=== PATIENT | male | born 1935 | race Caucasian/White ===

== ENCOUNTER 2016-10-08 10:24 | Inpatient (IN) | payer OTHER ==
--- NOTE | 2016-10-08 10:47 | PDOC ---
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 Ortiz Rosa for evaluation of nausea and jaundice. He states he had an appointment with his Onc/Heme last week , for which he underwent chemotherapy, had outpatient labs drawn and a CT which showed improvement of his liver lesions. Patient states that since his outpatient appointment, he has been feeling nauseous for which he attributes to compliance of his narcotic pain medications. Patient also notes that his chronic leg swelling has worsen, as he notices that his legs are a but more swollen than usual. He denies fever, chills, chest pain, shortness of breath, lightheadedness. Allergies: No Known Drug Allergies. Past Surgical History: Cataract Removal. Cholecystectomy. Permanent Pacemaker. 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 Former smoker (quit approximately 52 years ago). No ETOH and recreational drug use. Primary Care Physician: Dr. Stephanie Brewster [phone] Oncologist/Fountain Worker: Dr. Ortiz Rosa [phone] <Kassie Caldwell - Last Filed: 10/08/16 13:41> - General Chief Complaint: Altered Mental Status Stated Complaint: NAUSEA, CONFUSION (PCP SENT) Past History - Past Medical History Anemia: Yes (Myelodysplastic anemia) Asthma: No Cancer: Yes (PANCREATIC/LIVER) Cardiac Disorders: Yes (arrythmia) CVA: No COPD: No CHF: No Dementia: No GI Disorders: Yes (RENAL STONES) Disorders: Yes (ENLARGED PROSTATE) HTN: No Hypercholesterolemia: No Liver Disease: No Suicide Attempt (Hx): Yes Seizures: No Thyroid Disease: Yes (HYPOTHYROID) - Surgical History Abdominal Surgery: Yes Appendectomy: No Cardiac Surgery: No Cholecystectomy: Yes Lung Surgery: No Neurologic Surgery: No Orthopedic Surgery: No - Immunization History Td Vaccination: Yes TDAP Vaccination: Yes - Psycho/Social/Smoking Cessation Hx Anxiety: No Suicidal Ideation: No Smoking Status: No Smoking History: Former smoker Have you smoked in the past 12 months: No Number of Cigarettes Smoked Daily: 0 If you are a former smoker, when did you quit?: 40 YRS Cigars Per Day: 0 Information on smoking cessation initiated: No 'Breaking Loose' booklet given: 05/15/13 Hx Alcohol Use: No Drug/Substance Use Hx: No Substance Use Type: None Hx Substance Use Treatment: No <Chirag Oliva - Last Filed: 10/08/16 12:45> <Kassie Caldwell - Last Filed: 10/08/16 13:41> - Past Medical History Allergies/Adverse Reactions: Allergies Allergy/AdvReac Type Severity Reaction Status Date / Time No Known Allergies Allergy Verified 10/08/16 10:32 Home Medications: Ambulatory Orders Norvasc - 2.5 mg PO DAILY 07/04/16 Oxycodone HCl 5 mg PO PRN 07/04/16 Synthroid - 50 mcg PO DAILY 07/04/16 Tamsulosin HCl [Flomax] 0.4 mg PO HS 07/04/16 Uloric - 80 mg PO DAILY 07/04/16 Zofran 8 mg PO PRN 07/04/16 Review of Systems - Review of Systems Constitutional: Yes: Weakness Cardiac (ROS): No: Chest Pain ABD/GI: Yes: See HPI, Nausea, Poor Appetite, Vomiting Musculoskeletal: Yes: Muscle Pain Neurological: Yes: See HPI All Other Systems: Reviewed and Negative <Chirag Oliva - Last Filed: 10/08/16 12:45> *Physical Exam - Vital Signs Last Vital Signs Temp Pulse Resp BP Pulse Ox 97.5 F L 51 L 20 83/58 98 10/08/16 10:26 10/08/16 10:26 10/08/16 10:26 10/08/16 10:26 10/08/16 10:26 <Chirag Oliva - Last Filed: 10/08/16 12:45> - Vital Signs Last Vital Signs Temp Pulse Resp BP Pulse Ox 97.5 F L 51 L 20 83/58 98 10/08/16 10:26 10/08/16 10:26 10/08/16 10:26 10/08/16 10:26 10/08/16 10:26 - Physical Exam Comments: 10/08/16 10:57 GENERAL: The patient is awake, alert, and fully oriented. +Jaundiced. HEAD: Normal with no signs of trauma. EYES: Pupils equal, round and reactive to light, extraocular movements intact, sclera anicteric, conjunctiva clear with no pallor. ENT: Ears normal, nares patent, oropharynx clear without exudates. Moist mucous membranes. NECK: Normal range of motion, supple without lymphadenopathy, JVD, or masses. LUNGS:+Decreased breath sounds at the bases. No wheeze/crackles. HEART: Regular rate and rhythm, normal S1 and S2 without murmur or rub. ABDOMEN: Soft/nontender/nondistended. BS wnl. No guarding or rebound. + Enlarged liver. EXTREMITIES: Normal range of motion. +There is 1-2+pitting edema yto the lower extremities, bilaterally. No clubbing or cyanosis. No cords, erythema, or tenderness. NEUROLOGICAL: Cranial nerves II through XII grossly intact. Normal speech. PSYCH: Normal mood, normal affect. SKIN: +Jaundiced. <Kassie Caldwell - Last Filed: 10/08/16 13:41> Heart Score/ECG Review #1 ECG reviewed & interpreted by me at: 11:10 Compared to previous ECG there are: No significant change (06/17/16) 10/08/16 11:47 Overall regular bradycardic rhythm with aberrancy, occasional PVC, ventricularly paced beat noted. No secondary signs of acute ischemic change. <Chirag Oliva - Last Filed: 10/08/16 12:45> ED Treatment Course - LABORATORY CBC & Chemistry Diagram: 10/08/16 11:00 10/08/16 11:00 - RADIOLOGY Radiology Studies Ordered: Category Date Time Status CHEST X-RAY PORTABLE* [RAD] Stat Radiology 10/08/16 10:45 Ordered <Chirag Oliva - Last Filed: 10/08/16 12:45> - LABORATORY CBC & Chemistry Diagram: 10/08/16 11:00 10/08/16 11:00 - RADIOLOGY Radiograph Interpretation: 10/08/16 13:39 EXAM: CT/HEAD CT WITHOUT CONTRAST IMPRESSION: Comparison studies: June 14, 2013 Clinical history: Altered mental status 5 mm thin axial sections completed with coronal and sagittal reformations, intravenous contrast was not administered. Age-appropriate changes in the cerebral cortical sulci consistent with moderate atrophy and ventricular distention. Stable appearance of mild chronic microvascular ischemic changes in the periventricular white matter No evidence of increased intracranial pressure with no sulcal effacement identified No subdural or subarachnoid hemorrhage No intraventricular hemorrhage No hyperdense vessel Midline fourth ventricle with no signs of downward herniation and normal visualization of the brainstem and posterior fossa No acute areas of infarction noted in the posterior fossa or in the supratentorial brain No CT evidence of mass. Review of the bone windows with normal aeration sinuses and mastoids with no calvarial lesion identified. Normal region of orbits. EXAM: RAD/CHEST X-RAY PORTABLE IMPRESSION: Chest. Single AP portable x-ray. Comparison study June 17, 2016. Left pacemaker with 2 intact leads. Cardiomegaly. Uncoiled thoracic aorta. Patient slightly rotated toward the left side. The lungs are well aerated. No evidence of pulmonary infiltrates, vascular congestion, pleural effusion, or pneumothorax. Intact visualized osseous structures. <Kassie Caldwell - Last Filed: 10/08/16 13:41> Medical Decision Making - Medical Decision Making 10/08/16 11:47 A portion of this note was documented by scribe services under my direction. I have reviewed the details of the note, within reason, and agree with the documentation with the following case summary and management plan written by me. 81-year-old male with history of metastatic pancreatic CA on weekly chemotherapy with recent outpatient evidence of failure to respond to chemotherapy, rising bilirubins as of last week, and today presented to admitting for unclear reasons, was diverted to the ED for further evaluation. Has no acute complaints other than his usual abdominal pain with nausea/vomiting , worsening bodyaches taking oral morphine at home. Vitals as noted. Jaundice. Remainder of exam as noted 81-year-old male with metastatic pancreatic CA and known liver lesions, failing to respond to outpatient chemotherapy with rising bilirubins of late and evidence of liver failure. Concern for hepatic encephalopathy, exam otherwise is noted. No fever. Labs including ammonia and lactate Chest x-ray, EKG Discussed with Dr. Rosa, provided most of the history above. Will likely require admission 10/08/16 12:37 Pancytopenia has actually improved, but markedly worsening in his liver function tests, giving compared to the provided total bilirubin level of 7 last week. Total bili now 23.6, elevated transaminases, acute renal insufficiency with creatinine of 3.6 and potassium 5.9. Insulin/D50/Kayexalate for IDRIS with hyperkalemia. Ammonia and Lactate normal. Likely becoming encephalopathic from liver failure. Will check ct head to r/o bleed given h/o pancytopenia/hepatic failure (INR hemolyzed). Proceed with admission. 10/08/16 12:45 Accepted for inpatient med/surg by Dr. Marina, admitting Dr. Brewster's patients. Requested consult from GI (seen by Bill/Karime in past), Dr. Charles organizational effectiveness consultant. Requested consult from Dr. Helton of renal. <Chirag Oliva - Last Filed: 10/08/16 12:45> - Medical Decision Making 10/08/16 11:08 A call was placed to patient's Oncologist/Fountain Worker, Dr. Ortiz Rosa at . Informed by contract post office clerk that the Dr. Ortiz Rosa is in a meeting and will return our call back as soon as he is done. 10/08/16 11:52 Discussed case with Oncologist/Fountain Worker, Dr. Ortiz Rosa. Informed that his outpatient biliruben was 7.8. Patient presenting to Admitting for unclear reasons. Admitting contacted Dr. Rosa, for which he is unclear why the patient is in the hospital, thus he is concern of patient's confusion. As per Dr. Rosa , the patient has stopped responding to chemotherapy. 10/08/16 12:39 A call was placed to Dr. Yazmin Marina, who covers for patient's PMD, Dr. Stephanie Brewster at [phone]. Case was discussed. Accepts case. Patient will be admitted for further management. <Kassie Caldwell - Last Filed: 10/08/16 13:41> *DC/Admit/Observation/Transfer - Discharge Dispostion Admit: Yes <Chirag Oliva - Last Filed: 10/08/16 12:45> - Attestations Scribe Attestion: 10/08/16 10:57 Documentation prepared by Kassie Caldwell, acting as medical superintendent for Chirag Oliva MD. <Kassie Caldwell - Last Filed: 10/08/16 13:41> Diagnosis at time of Disposition: Liver metastases, Jaundice, Hepatic encephalopathy Altered mental status Qualifiers: Altered mental status type: disorientation Qualified Code(s): R41.0 - Disorientation, unspecified
[2016-10-08 11:34] LABS: MCHC 35.9 g/dl (32.0-35.9); MEAN CELL VOLUME 116.7 fl (80-96); MEAN PLT VOLUME 11.8 fl (7.5-11.1); PLATELET COUNT 124 K/MM3 (134-434); RDW 16.3 % (11.9-15.9); WHITE BLOOD COUNT 4.9 K/mm3 (4.0-10.0)
[2016-10-08 11:37] LABS: MCH 41.9 pg (25.7-33.7)
[2016-10-08 11:48] LABS: ALBUMIN 3.7 g/dl (3.4-5.0); ANION GAP 16 (8-16); CALCIUM 9.4 mg/dL (8.5-10.1); CO2 16 mmol/L (21-32); CREATININE 3.6 mg/dL (0.7-1.3); GLUCOSE,RANDOM 140 mg/dL (74-106)
[2016-10-08 11:57] LABS: ALK PHOS 447 U/L (45-117); BILIRUBIN,TOTAL 23.6 mg/dL (0.2-1.0); TROPONIN I < 0.02 ng/ml (0.00-0.05)
[2016-10-08 12:05] LABS: SGOT/AST 106 U/L (15-37)
[2016-10-08 12:06] LABS: SGPT/ALT 104 U/L (12-78)
[2016-10-08] MEDS ORDERED: SODIUM POLYSTYRENE SULFONATE 15 GM/60 ML BOTTLE PO ONE (12:36)
[2016-10-08] MEDS ORDERED: SODIUM CHLORIDE 1,000 ML IV ONE (12:36)
[2016-10-08] MEDS ORDERED: INSULIN REGULAR HUMAN 100 UNITS/ML *VIAL IVPUSH ONE (12:36)
[2016-10-08] MEDS ORDERED: DEXTROSE 50%-WATER 50 ML VIAL IVPUSH ONE (12:36)
[2016-10-08] MEDS ORDERED: DEXTROSE 50%-WATER 50 ML DISP.SYRIN ONE (12:40)
[2016-10-08] MEDS ORDERED: SODIUM POLYSTYRENE SULFONATE 15 GM/60 ML BOTTLE ONE (12:40)
[2016-10-08] MEDS ORDERED: INSULIN REGULAR HUMAN 100 UNITS/ML *VIAL ONE (12:41)
[2016-10-08] MEDS ORDERED: ONDANSETRON 4 MG/2 ML VIAL ONE (12:43)
[2016-10-08 15:50] VITALS: BMI 27.1
--- NOTE | 2016-10-08 16:04 | PN ---
Progress Note (short form) - Note Progress Note: Consult dictated: 81M with metastatic pancreatic cancer. Has been getting chemo for about 4-5 months Admitted for generalized weakness, jaundice On exam: Scleral icterus Bradycardic heart rate No abdominal tenderness B/L LE edema Imp/plan: Painless jaundice. Given clinical picture, suspect secondary to progression of cancer, cancer burden in liver and possibly biliary duct involvement. There is no imaging to assess for ductal dilatation. Regardless, he has received several months of chemotherapy. At this point, the goal should be for palliative measures. I explained the situation to Mr. Carrasco. He would like to speak to his oncologist. Abdominal US to assess for dilated bile ducts
--- NOTE | 2016-10-08 21:17 | CONS ---
DATE OF CONSULTATION: 10/08/2016 REQUESTING PHYSICIAN: Yazmin Marina MD The patient is an 81-year-old male admitted through [facility] emergency room for evaluation of generalized malaise and weakness. He has a history of metastatic pancreatic cancer and was diagnosed in April of 2016. He had a colonoscopy at that time to exclude a colon source. He has been getting chemotherapy for approximately 4 to 5 months. He last had a CT scan of the abdomen and pelvis without contrast September 17, 2016, that revealed hepatic masses slightly decreased in size, some have remained stable, without any significant increase in size of the lesions. The spleen appeared unremarkable. There is a previously described prominent pancreatic tail with heterogeneous attenuation in separable from medial aspect of the spleen. Pancreatic head and body were unremarkable. I have been asked to evaluate further. Past medical history includes coronary artery disease, CHF, hyperlipidemia, bradycardia, he has tachy-jaydon syndrome status post permanent pacemaker, pulmonary history is COPD, pneumonia, constipation, cholelithiasis status post laparoscopic cholecystectomy, renal calculi status post stenting with ESWL, myeloproliferative disorder, history of Alzheimer disease, hypothyroidism, onychomycosis of the nails, optic preseptal cellulitis, cataract removal. Past surgical history includes cataract removal, laparoscopic cholecystectomy. SOCIAL HISTORY: Rare alcohol use. Former smoker. No history of intravenous drug abuse, illicit drugs. 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 PHYSICAL EXAMINATION: General: Patient was found lying in his bed. Vital Signs: He is afebrile, pulse of 50, blood pressure 90/49. Sclerae: Icteric. Neck: Supple. Heart: A bradycardic rate with a systolic murmur. Abdomen: Nondistended. He had healed trocar scars. No hepatosplenomegaly is appreciated. There is some fullness in the right upper quadrant. There is no guarding or rebound. Extremities: Bilateral lower extremity edema which is pitting. LABORATORY EVALUATION: White blood count 4.9, hemoglobin 11, hematocrit 30.7, platelets of 124. Sodium 135, potassium 5.9, chloride 103, bicarbonate 16, BUN 80, creatinine 3.6, glucose 140, AST of 106, ALT of 104, alkaline phosphatase of 447, total bilirubin 23.6, ammonia level less than 10. RADIOLOGY REPORTS: CT scan of the brain revealed no evidence of mass, hemorrhage, or acute vascular infarction. IMPRESSION: An 81-year-old male with painless jaundice. Given clinical picture, I suspect that this is secondary to progression of his cancer, likely cancer burden with an increasing cancer burden in his liver, possibly biliary duct involvement as well. There is no imaging to assess for ductal dilatation. Regardless, he has received several months of chemotherapy. At this point the goal should be for palliative measures. I explained the situation to the patient. He would like to speak to his oncologist, consider palliative care evaluation. I did place a consult for palliative care, abdominal ultrasound to assess for dilated bile ducts. Other recommendations pending the above. I thank you for this consultative opportunity. MIKIE MADSEN DO [id number]
--- NOTE | 2016-10-08 23:43 | HP ---
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 Ortiz Rosa for evaluation of nausea and jaundice. He states he had an appointment with his Onc/Heme last week , for which he underwent chemotherapy, had outpatient labs drawn and a CT which showed improvement of his liver lesions. Patient states that since his outpatient appointment, he has been feeling nauseous for which he attributes to compliance of his narcotic pain medications. Patient also notes that his chronic leg swelling has worsen, as he notices that his legs are a but more swollen than usual. He denies fever, chills, chest pain, shortness of breath, lightheadedness. 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: Other (myeloproliferative disorder ca of pancreas with liver metastases, onychomycoses of finger nails on the left hand.) Cardiovascular: Yes: AFIB, CAD, CHF, HTN, Hyperlipdemia, Other (tachy jaydon syndrome) Pulmonary: Yes: Other (has some copd and had pneumonia at his last hospitalization in another hospital.) Gastrointestinal: Yes: Constipation Hepatobiliary: Yes: Cholelithiasis (had lap choly), Other Renal/: Yes: BPH, Renal Calculi (s/p stenting and ERSWL at [facility]) Heme/Onc: Yes: Anemia, Myeloproliferative Synd (transfused at [facility]) Psych: Yes: Other (early alzheimers disease.) Rheumatology: Yes: Gout Endocrine: Yes: Hypothyroidism Dermatology: Yes: Other (onychomycis of the nails of the left hand.) - Past Surgical History Past Surgical History: Yes: Cataract Removal, Cholecystectomy, Permanent Pacemaker - Smoking History Smoking history: Former smoker Have you smoked in the past 12 months: No Aproximately how many cigarettes per day: 0 If you are a former smoker, when did you quit?: 40 YRS - Alcohol/Substance Use Hx Alcohol Use: No - Social History ADL: Support Services 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, 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, [employer]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 History of Recent Travel: No Home Medications - Allergies Allergies/Adverse Reactions: Allergies Allergy/AdvReac Type Severity Reaction Status Date / Time No Known Allergies Allergy Verified 10/08/16 10:32 - Home Medications Home Medications: Ambulatory Orders Norvasc - 2.5 mg PO DAILY 07/04/16 Oxycodone HCl 5 mg PO PRN 07/04/16 Synthroid - 50 mcg PO DAILY 07/04/16 Tamsulosin HCl [Flomax] 0.4 mg PO HS 07/04/16 Uloric - 80 mg PO DAILY 07/04/16 Zofran 8 mg PO PRN 07/04/16 Family Disease History - Family Disease History Family Disease History: Heart Disease: Mother ( of PA in her 70's), CA: Father (lung cancer), Other: Son (obesity) Review of Systems - Review of Systems Constitutional: reports: Loss of Appetite Eyes: reports: No Symptoms HENT: reports: No Symptoms Neck: reports: No Symptoms Cardiovascular: reports: No Symptoms Respiratory: reports: Exercise Intolerance Gastrointestinal: reports: Other (jaundice) Genitourinary: reports: No Symptoms Breasts: reports: No Symptoms Reported Musculoskeletal: reports: No Symptoms Integumentary: reports: No Symptoms Neurological: reports: No Symptoms Psychiatric: reports: No Symptoms Physical Examination Vital Signs: Vital Signs Temperature 97.5 F L 10/08/16 21:41 Pulse Rate 60 10/08/16 21:41 Respiratory Rate 18 10/08/16 21:41 Blood Pressure 107/50 10/08/16 21:41 O2 Sat by Pulse Oximetry (%) 98 10/08/16 21:00 Constitutional: Yes: Well Nourished, Calm Eyes: Yes: Other (jaundice) HENT: Yes: Atraumatic, Normocephalic Neck: Yes: Supple Cardiovascular: Yes: Regular Rate and Rhythm, Bradycardia Respiratory: Yes: Regular, CTA Bilaterally Gastrointestinal: Yes: Normal Bowel Sounds Renal/: Yes: WNL Breast(s): Yes: WNL Edema: LLE: 2+, RLE: 2+ Peripheral Pulses: Left Radial: 1+ Integumentary: Yes: WNL Neurological: Yes: Alert, Oriented Psychiatric: Yes: Alert, Oriented Problem List - Problems (1) Jaundice Code(s): R17 - UNSPECIFIED JAUNDICE (2) Abdominal bloating Code(s): R14.0 - ABDOMINAL DISTENSION (GASEOUS) (3) Anemia Code(s): D64.9 - ANEMIA, UNSPECIFIED Qualifiers: 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 (4) Chronic kidney disease (CKD) Code(s): N18.9 - CHRONIC KIDNEY DISEASE, UNSPECIFIED Qualifiers: Chronic kidney disease stage: stage 3 (moderate) Qualified Code(s): N18.3 - Chronic kidney disease, stage 3 (moderate) (5) Chronic myeloproliferative disorder Code(s): D47.1 - CHRONIC MYELOPROLIFERATIVE DISEASE (6) HTN (hypertension) Code(s): I10 - ESSENTIAL (PRIMARY) HYPERTENSION Qualifiers: Hypertension type: essential hypertension Qualified Code(s): I10 - Essential (primary) hypertension (7) Hypothyroidism Code(s): E03.9 - HYPOTHYROIDISM, UNSPECIFIED Qualifiers: Hypothyroidism type: unspecified Qualified Code(s): E03.9 - Hypothyroidism, unspecified (8) Liver masses Code(s): R16.0 - HEPATOMEGALY, NOT ELSEWHERE CLASSIFIED (9) Liver metastases Code(s): C78.7 - SECONDARY MALIG NEOPLASM OF LIVER AND INTRAHEPATIC BILE DUCT (10) Presence of permanent cardiac pacemaker Code(s): Z95.0 - PRESENCE OF CARDIAC PACEMAKER
--- NOTE | 2016-10-08 23:48 | EKG ---
Test Reason : Blood Pressure : / mmHG Vent. Rate : 055 BPM Atrial Rate : 055 BPM P-R Int : 000 ms QRS Dur : 154 ms QT Int : 462 ms P-R-T Axes : 000 -76 149 degrees QTc Int : 441 ms SINUS BRADYCARDIA WITH SINUS ARRHYTHMIA WITH 1ST DEGREE A-V BLOCK WITH OCCASIONAL ventricular-paced complexes LEFT AXIS DEVIATION NON-SPECIFIC INTRA-VENTRICULAR CONDUCTION BLOCK ABNORMAL ECG WHEN COMPARED WITH ECG OF 17-JUN-2016 15:26, ELECTRONIC VENTRICULAR PACEMAKER HAS REPLACED SINUS RHYTHM Confirmed by HUMBLE NY MD ([id number]) on 10/08/2016 11:48:38 PM Referred By: Confirmed By:HUMBLE [place] MD
[2016-10-09] MEDS: LEVOTHYROXINE NA 50 MCG TABLET (FP) PO SCH (06:08)
[2016-10-09 07:13] LABS: INR 1.58 (0.82-1.09); PROTHROMBIN TIME (PATIENT) 17.5 SEC (9.98-11.88)
[2016-10-09 07:16] LABS: ACTIVATED PTT 31.2 SECONDS (26.9-34.4)
[2016-10-09 07:45] LABS: BASOPHIL 0.6 % (0-2.0); MCH 39.2 pg (25.7-33.7); MCHC 32.8 g/dl (32.0-35.9); MEAN CELL VOLUME 119.5 fl (80-96); MEAN PLT VOLUME 10.7 fl (7.5-11.1); NEUTROPHILS 66.3 % (42.8-82.8); PLATELET COUNT 65 K/MM3 (134-434); RDW 16.7 % (11.9-15.9); WHITE BLOOD COUNT 5.9 K/mm3 (4.0-10.0)
[2016-10-09 08:31] LABS: ALBUMIN 3.1 g/dl (3.4-5.0); BILIRUBIN,TOTAL 20.8 mg/dL (0.2-1.0); CALCIUM 8.7 mg/dL (8.5-10.1); MAGNESIUM 2.4 mg/dL (1.8-2.4)
[2016-10-09] MEDS ORDERED: HYDROmorphone HCL CARPU-JECT 1 MG/1 ML DISP.SYRIN IVPB ONE (16:18)
[2016-10-09] MEDS ORDERED: SODIUM CHLORIDE 500 ML IV STA (16:18)
--- NOTE | 2016-10-09 16:22 | PN ---
Progress Note (short form) - Note Progress Note: Renal Consult for RADHA on CKD This is a 81 year old Gentleman with PMhx of Metastatic Pancreatic Ca, Myeloproliferative disorder, Hypertension, CAD, COPD, BPH, Gout who presented with Nausea and vomiting and found to have RADHA with BUN/Cr of 80/3.6. Baseline CR 1.7. Pt s/p recent chemo with Gemzar last week. Denies any NSAID use No recent contrast exposure. Reports decreased urine output with dark urine. No flank pain but does have abd pain. No sob, chest pain. No fever or chills. PMhx: as above Allergies: NKDA Family hx: NC Social Hx: No T/A/D ROS: as per HPI, all other pertinent ros negative Home Meds: Medication Instructions Recorded Norvasc - 2.5 mg PO DAILY 07/04/16 Oxycodone HCl 5 mg PO PRN 07/04/16 Synthroid - 50 mcg PO DAILY 07/04/16 Tamsulosin HCl [Flomax] 0.4 mg PO HS 07/04/16 Uloric - 80 mg PO DAILY 07/04/16 Zofran 8 mg PO PRN 07/04/16 Vital Signs Temperature 97.5 F L 10/09/16 08:35 Pulse Rate 64 10/09/16 08:35 Respiratory Rate 20 10/09/16 08:35 Blood Pressure 107/67 10/09/16 08:35 O2 Sat by Pulse Oximetry (%) 98 10/09/16 08:35 Intake & Output 10/06/16 10/07/16 10/08/16 10/09/16 23:59 23:59 23:59 23:59 Intake Total 400 Output Total 200 Balance 200 Weight 195 lb Gen: Mild distress from abd pain HEENT: Dry MM, NO JVD, Neck Supple CVS: RRR, No M/R Lungs: CTA, no rales or wheeze Abd: + tenderness RLQ Ext: 1+ edema in LE, no cyanosis or clubbing. : No overt bladder distension CBC, BMP 10/09/16 05:35 10/09/16 05:35 Current Medications Diphenhydramine HCl (Benadryl -) 50 mg PO Q4H PRN PRN Reason: ITCHING Sodium Chloride (Normal Saline -) 500 mls @ 500 mls/hr IV ASDIR STA Stop: 10/09/16 17:17 Sodium Chloride (Normal Saline -) 1,000 mls @ 83 mls/hr IV ASDIR STANLEY Levothyroxine Sodium (Synthroid -) 50 mcg PO DAILY@0700 [facility] Last Admin: 10/09/16 06:08 Dose: 50 mcg A/P 81 year old Gentleman with PMhx of Metastatic Pancreatic Ca, Myeloproliferative disorder, Hypertension, CAD, COPD, BPH, Gout who presented with Nausea and vomiting and found to have RADHA with BUN/Cr of 80/3.6. Baseline CR 1.7 #Acute Kidney Injury Differntial includes : Obstruction from tumor burden, Volume depletion from N/V , TTP-HUS from Gemzar Check UA, UPCR, FeNa Check LDH, Haptoglobin, Noble Renal and bladder US to r/o obstruction Start IVF: NS Bolous and then maintaince if no significant urine output -> insert chinchilla to monitor I and O No acute indication for SPINNERET PERSON at this time Dose all meds for Cr Cl less then 15 #Metabolic acidosis + Anion gap Start sodium bicarb 650mg BID Check urine anion gap #Metastatic Pancreatic CA Oncology follow up Pain control #Anemia/Thrombocytopenia Chemo related vs. TTP-HUS Check LDH, haptoglobin, noble Oncology follow up Thank you Will follow Bryan Love DO
[2016-10-09] MEDS: diphenhydrAMINE HCL 25 MG CAPSULE (FP) PO PRN (16:49)
[2016-10-09] MEDS: SODIUM CHLORIDE 1,000 ML IV SCH (16:54)
[2016-10-09] MEDS ORDERED: oxyCODONE HCL 5 MG TABLET PO PRN ×2 (17:21→23:07)
--- NOTE | 2016-10-09 19:45 | PN ---
Progress Note (short form) - Note Progress Note: The patient is an 81-year-old man with a significant past medical history of MDS and of pancreatic carcinoma with liver metastasis (on chemotherapy for the past 3 months, last chemotherapy was last week/ Gemzar and Abraxane),, hypertension, hypercholesterolemia, coronary artery disease, atrial fibrillation , chronic obstructive pulmonary disease, benign prostatic hyperplasia, gout arthritis, hypothyroidism and Alzheimer's disease came in for evaluation of nausea and jaundice. Also with worsening lower extremity edema. 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.) Cardiovascular: Yes: AFIB, CAD, CHF, HTN, Hyperlipdemia, Other (tachy jaydon syndrome) Pulmonary: Yes: Other (has some copd and had pneumonia at his last hospitalization in another hospital.) Gastrointestinal: Yes: Constipation Hepatobiliary: Yes: Cholelithiasis (had lap choly), Other Renal/: Yes: BPH, Renal Calculi (s/p stenting and ERSWL at [facility]) Heme/Onc: Yes: Anemia, Myeloproliferative Synd (transfused at [facility]) Psych: Yes: Other (early alzheimers disease.) Rheumatology: Yes: Gout Endocrine: Yes: Hypothyroidism Dermatology: Yes: Other (onychomycis of the nails of the left hand.) - Past Surgical History Past Surgical History: Yes: Cataract Removal, Cholecystectomy, Permanent Pacemaker - Smoking History Smoking history: Former smoker - Social History ADL: Support Services 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, 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, [employer]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 Home Medications - Allergies Allergies/Adverse Reactions: Allergies Allergy/AdvReac Type Severity Reaction Status Date / Time No Known Allergies Allergy Verified 10/08/16 10:32 - Home Medications Home Medications: Ambulatory Orders Norvasc - 2.5 mg PO DAILY 07/04/16 Oxycodone HCl 5 mg PO PRN 07/04/16 Synthroid - 50 mcg PO DAILY 07/04/16 Tamsulosin HCl [Flomax] 0.4 mg PO HS 07/04/16 Uloric - 80 mg PO DAILY 07/04/16 Zofran 8 mg PO PRN 07/04/16 Current Medications Diphenhydramine HCl (Benadryl -) 50 mg PO Q4H PRN PRN Reason: ITCHING Last Admin: 10/10/16 10:24 Dose: 50 mg Febuxostat (Uloric -) 80 mg PO DAILY [facility] Last Admin: 10/10/16 10:25 Dose: 80 mg Hydromorphone HCl (Dilaudid Injection -) 1 mg IVPB Q4H PRN PRN Reason: PAIN Last Admin: 10/10/16 00:57 Dose: 1 mg Sodium Chloride (Normal Saline -) 1,000 mls @ 83 mls/hr IV ASDIR [facility] Last Admin: 10/10/16 10:22 Dose: 83 mls/hr Levothyroxine Sodium (Synthroid -) 50 mcg PO DAILY@0700 [facility] Last Admin: 10/10/16 06:13 Dose: 50 mcg Oxycodone HCl (Roxicodone -) 5 mg PO Q4H PRN PRN Reason: PAIN Tamsulosin HCl (Flomax -) 0.4 mg PO DAILY@0830 [facility] Last Admin: 10/10/16 10:24 Dose: 0.4 mg Family Disease History - Family Disease History Family Disease History: Heart Disease: Mother ( of CA in her 70's), CA: Father (lung cancer), Other: Son (obesity) Physical Examination Vital Signs: AFVSS Constitutional: Yes: Well Nourished, Calm Eyes: Yes: Other (jaundice) HENT: Yes: Atraumatic, Normocephalic Neck: Yes: Supple Cardiovascular: Yes: Regular Rate and Rhythm, Bradycardia Respiratory: Yes: Regular, CTA Bilaterally Gastrointestinal: Yes: Normal Bowel Sounds ext.--2+ edema b/l A/P 81 y/o patient with HTN, hypothyroidism, , s/p pacemaker , MDS, metastatic pancreatic cancer on gemzar/abraxane now comes in with progressive disease, worsening jaundice. s/p gemzar/abraxane with good palliative, clinical benefit, now progressing agree with palliative/hospice care
[2016-10-09] MEDS ORDERED: HYDROmorphone HCL CARPU-JECT 1 MG/1 ML DISP.SYRIN IVPB PRN (23:03)
--- NOTE | 2016-10-09 23:37 | PN ---
Progress Note (short form) - Note Progress Note: jaundice / awake / alert /c/o pain / c/o itching "cannot find a comfortable position" pain in back / pain to abdomen / 'feeling bloated Vital Signs Period Temp Pulse Resp BP Sys/Beverly Pulse Ox Last 24 Hr 97.4 F-97.8 F 51-65 18-20 105-120/52-67 97-98 uncomfortable in bed / just recieved IV dilaudid neck no JVD heart S1S2 lungs clear bilat abd + distended mildly ext + edema Laboratory Last Values WBC 5.9 K/mm3 (4.0-10.0) 10/09/16 05:35 RBC 2.56 M/mm3 (4.00-5.60) L 10/09/16 05:35 Hgb 10.1 GM/dL (11.7-16.9) L 10/09/16 05:35 Hct 30.6 % (35.4-49) L 10/09/16 05:35 MCV 119.5 fl (80-96) H 10/09/16 05:35 MCHC 32.8 g/dl (32.0-35.9) 10/09/16 05:35 RDW 16.7 % (11.9-15.9) H 10/09/16 05:35 Plt Count 65 K/MM3 (134-434) L D 10/09/16 05:35 MPV 10.7 fl (7.5-11.1) 10/09/16 05:35 Neutrophils % 66.3 % (42.8-82.8) 10/09/16 05:35 Lymphocytes % 20.7 % (8-40) D 10/09/16 05:35 Monocytes % 9.4 % (3.8-10.2) D 10/09/16 05:35 Eosinophils % 3.0 % (0-4.5) 10/09/16 05:35 Basophils % 0.6 % (0-2.0) 10/09/16 05:35 Band Neutrophils 2.0 % (0-10) D 10/08/16 11:00 Macrocytosis 3+ 10/08/16 11:00 INR 1.58 (0.82-1.09) H D 10/09/16 05:35 PTT (Actin FS) 31.2 SECONDS (26.9-34.4) D 10/09/16 05:35 Sodium 138 mmol/L (136-145) 10/09/16 05:35 Potassium 4.3 mmol/L (3.5-5.1) D 10/09/16 05:35 Chloride 106 mmol/L (98-107) 10/09/16 05:35 Carbon Dioxide 17 mmol/L (21-32) L 10/09/16 05:35 Anion Gap 15 (8-16) 10/09/16 05:35 BUN 93 mg/dL (7-18) H 10/09/16 05:35 Creatinine 4.0 mg/dL (0.7-1.3) H 10/09/16 05:35 Creat Clearance w eGFR 14.41 (>60) 10/09/16 05:35 Random Glucose 116 mg/dL (74-106) H 10/09/16 05:35 Lactic Acid 1.564 mmol/L (0.4-2.0) 10/08/16 11:00 Calcium 8.7 mg/dL (8.5-10.1) 10/09/16 05:35 Magnesium 2.4 mg/dL (1.8-2.4) 10/09/16 05:35 Total Bilirubin 20.8 mg/dL (0.2-1.0) H* 10/09/16 05:35 Direct Bilirubin 14.1 mg/dL (0.0-0.2) H* 10/08/16 11:00 AST 73 U/L (15-37) H D 10/09/16 05:35 ALT 88 U/L (12-78) H 10/09/16 05:35 Alkaline Phosphatase 425 U/L (45-117) H 10/09/16 05:35 Ammonia < 10.00 umol/L (11-32) L 10/08/16 11:15 LD Total 175 U/L (87-241) 10/09/16 17:20 Creatine Kinase 122 IU/L (39-308) 10/08/16 11:00 Troponin I < 0.02 ng/ml (0.00-0.05) D 10/08/16 11:00 Total Protein 7.0 g/dl (6.4-8.2) 10/09/16 05:35 Albumin 3.1 g/dl (3.4-5.0) L 10/09/16 05:35 Blood Type AB POSITIVE 10/08/16 10:45 Antibody Screen Negative 10/08/16 10:45 Direct Antiglob Test Negative (NEGATIVE) 10/09/16 17:20 Microbiology 10/08/16 11:00 Blood - Peripheral Venous Blood Culture - Preliminary NO GROWTH OBTAINED AFTER 24 HOURS, INCUBATION TO CONTINUE FOR 4 DAYS. 10/08/16 11:00 Blood - Peripheral Venous Blood Culture - Preliminary NO GROWTH OBTAINED AFTER 24 HOURS, INCUBATION TO CONTINUE FOR 4 DAYS. 81-year-old male with metastatic pancreatic CA and known liver lesions, failing to respond to outpatient chemotherapy with rising bilirubins of late and evidence of liver failure. Concern for hepatic failure /acute kidney failure / failure of treatment Awaiting Heme -onc follow up; as patient wants to discuss "management "- palliative care has been requested and have spoken to the patient. He states he knows he has "little time" ........ plan for comfort care / pain management Problem List - Problems (1) Pancreatic adenocarcinoma Code(s): C25.9 - MALIGNANT NEOPLASM OF PANCREAS, UNSPECIFIED (2) Liver metastases Code(s): C78.7 - SECONDARY MALIG NEOPLASM OF LIVER AND INTRAHEPATIC BILE DUCT (3) Jaundice Code(s): R17 - UNSPECIFIED JAUNDICE (4) Abdominal bloating Code(s): R14.0 - ABDOMINAL DISTENSION (GASEOUS) (5) Anemia Code(s): D64.9 - ANEMIA, UNSPECIFIED Qualifiers: 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 (6) Chronic kidney disease (CKD) Code(s): N18.9 - CHRONIC KIDNEY DISEASE, UNSPECIFIED Qualifiers: Chronic kidney disease stage: stage 3 (moderate) Qualified Code(s): N18.3 - Chronic kidney disease, stage 3 (moderate) (7) Chronic myeloproliferative disorder Code(s): D47.1 - CHRONIC MYELOPROLIFERATIVE DISEASE (8) HTN (hypertension) Code(s): I10 - ESSENTIAL (PRIMARY) HYPERTENSION Qualifiers: Hypertension type: essential hypertension Qualified Code(s): I10 - Essential (primary) hypertension (9) Hypothyroidism Code(s): E03.9 - HYPOTHYROIDISM, UNSPECIFIED Qualifiers: Hypothyroidism type: unspecified Qualified Code(s): E03.9 - Hypothyroidism, unspecified (10) Liver masses Code(s): R16.0 - HEPATOMEGALY, NOT ELSEWHERE CLASSIFIED (11) Presence of permanent cardiac pacemaker Code(s): Z95.0 - PRESENCE OF CARDIAC PACEMAKER
[2016-10-10 04:52] LABS: URINE APPEARANCE SLCLOUDY; URINE BLOOD NEGATIVE (NEGATIVE); URINE COLOR AMBER; URINE GLUCOSE (UA) NEGATIVE (NEGATIVE); URINE KETONE NEGATIVE (NEGATIVE); URINE LEUK ESTERASE NEGATIVE (NEGATIVE); URINE NITRITE NEGATIVE (NEGATIVE); URINE UROBILINOGEN 2.0 E.U/dl E.U./dl (0.2-1.0)
[2016-10-10 04:56] LABS: URINE PROTEIN 1+ (NEGATIVE)
[2016-10-10 04:58] LABS: URINE MUCUS RARE; URINE RBC 1 /hpf (0-3); URINE WBC 3 /hpf (3-5)
[2016-10-10 05:02] LABS: SODIUM,RANDOM URINE 22 MMOL/L
[2016-10-10 05:04] LABS: CHLORIDE,RANDOM URINE < 10 MMOL/L
[2016-10-10] MEDS: LEVOTHYROXINE NA 50 MCG TABLET (FP) PO SCH (06:13)
[2016-10-10 07:15] LABS: MCHC 34.5 g/dl (32.0-35.9); MEAN CELL VOLUME 117.8 fl (80-96); MEAN PLT VOLUME 9.8 fl (7.5-11.1); PLATELET COUNT 61 K/MM3 (134-434); RDW 16.1 % (11.9-15.9); WHITE BLOOD COUNT 5.5 K/mm3 (4.0-10.0)
[2016-10-10 07:33] LABS: ALBUMIN 2.8 g/dl (3.4-5.0); CALCIUM 8.5 mg/dL (8.5-10.1); CREATININE 4.4 mg/dL (0.7-1.3); MAGNESIUM 2.4 mg/dL (1.8-2.4); PHOSPHOROUS 5.6 mg/dL (2.5-4.9); TOT PROT 6.2 g/dl (6.4-8.2)
[2016-10-10 08:05] LABS: MCH 40.6 pg (25.7-33.7)
[2016-10-10 09:39] LABS: HYPOCHROMIA 2+; TARGET CELLS 2+
[2016-10-10] MEDS: SODIUM CHLORIDE 1,000 ML IV SCH ×2 (10:22→16:38)
[2016-10-10] MEDS ORDERED: PT OWN MED DRAWER 7, Y5N ONE ×4 (10:24→21:41)
[2016-10-10] MEDS: diphenhydrAMINE HCL 25 MG CAPSULE (FP) PO PRN (10:24)
[2016-10-10] MEDS: TAMSULOSIN HCL 0.4 MG CAP.ER.24H (FP) PO SCH (10:24)
[2016-10-10] MEDS: FEBUXOSTAT 80 MG TAB PO SCH (10:25)
--- NOTE | 2016-10-10 11:28 | PN ---
Progress Note (short form) - Note Progress Note: Renal Follow up for RADHA Pt seen and examined at the bedside continues to have RUQ and lower abd pain Renal US showed mild bladder distension on IVF currently undocumented urine output Vital Signs Temperature 97.4 F L 10/10/16 10:29 Pulse Rate 54 L 10/10/16 10:29 Respiratory Rate 20 10/10/16 10:29 Blood Pressure 104/57 10/10/16 10:29 O2 Sat by Pulse Oximetry (%) 97 10/09/16 21:00 Intake & Output 10/07/16 10/08/16 10/09/16 10/10/16 23:59 23:59 23:59 23:59 Intake Total 400 Output Total 200 Balance 200 Weight 195 lb Gen: Mild distress from abd pain CVS: RRR, No M/R Lungs: CTA, no rales or wheeze Abd: + tenderness RUQ, Lower Abd Ext: 1+ edema in LE, no cyanosis or clubbing. : Mild bladder distension CBC, BMP 10/10/16 06:00 10/10/16 06:00 Current Medications Cholestyramine Resin (Questran Packet -) 4 gm PO BID [facility] Diphenhydramine HCl (Benadryl -) 50 mg PO Q4H PRN PRN Reason: ITCHING Last Admin: 10/10/16 10:24 Dose: 50 mg Febuxostat (Uloric -) 80 mg PO DAILY [facility] Last Admin: 10/10/16 10:25 Dose: 80 mg Hydromorphone HCl (Dilaudid Injection -) 1 mg IVPB Q4H PRN PRN Reason: PAIN Last Admin: 10/10/16 00:57 Dose: 1 mg Sodium Chloride (Normal Saline -) 1,000 mls @ 83 mls/hr IV ASDIR [facility] Last Admin: 10/10/16 10:22 Dose: 83 mls/hr Levothyroxine Sodium (Synthroid -) 50 mcg PO DAILY@0700 [facility] Last Admin: 10/10/16 06:13 Dose: 50 mcg Oxycodone HCl (Roxicodone -) 5 mg PO Q4H PRN PRN Reason: PAIN Tamsulosin HCl (Flomax -) 0.4 mg PO DAILY@0830 [facility] Last Admin: 10/10/16 10:24 Dose: 0.4 mg A/P 81 year old Gentleman with PMhx of Metastatic Pancreatic Ca, Myeloproliferative disorder, Hypertension, CAD, COPD, BPH, Gout who presented with Nausea and vomiting and found to have RADHA with BUN/Cr of 80/3.6. 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
[2016-10-10] MEDS ORDERED: PHENAZOPYRIDINE HCL 100 MG TABLET (FP) PO ONE (16:20)
--- NOTE | 2016-10-10 17:16 | PN ---
Progress Note (short form) - Note Progress Note: Patient in bed c/o itching / difficulty getting comfotable in bed patient jaundiced / awake / alert and oriented X3 Vital Signs Period Temp Pulse Resp BP Sys/Beverly Pulse Ox Last 24 Hr 97.3 F-97.7 F 51-68 18-20 95-111/52-63 97-97 neck supple heart regular lungs grossly clear ant and laterally abd mildly distended tenderness mostly at RUQ and supra pubic ext + edema CBC,CMP WBC 5.5 K/mm3 (4.0-10.0) 10/10/16 06:00 RBC 2.34 M/mm3 (4.00-5.60) L 10/10/16 06:00 Hgb 9.5 GM/dL (11.7-16.9) L 10/10/16 06:00 Hct 27.6 % (35.4-49) L 10/10/16 06:00 MCV 117.8 fl (80-96) H 10/10/16 06:00 MCHC 34.5 g/dl (32.0-35.9) 10/10/16 06:00 RDW 16.1 % (11.9-15.9) H 10/10/16 06:00 Plt Count 61 K/MM3 (134-434) L 10/10/16 06:00 MPV 9.8 fl (7.5-11.1) 10/10/16 06:00 Neutrophils % 61.0 % (42.8-82.8) 10/10/16 06:00 Lymphocytes % 24.0 % (8-40) 10/10/16 06:00 Monocytes % 8.0 % (3.8-10.2) 10/10/16 06:00 Eosinophils % 5.0 % (0-4.5) H 10/10/16 06:00 Basophils % 2.0 % (0-2.0) D 10/10/16 06:00 Band Neutrophils 2.0 % (0-10) D 10/08/16 11:00 Nucleated RBCs 2 % (0-0) H 10/10/16 06:00 Differential Comment Manual diff done 10/10/16 06:00 Hypochromic-Microcytic 2+ 10/10/16 06:00 Macrocytosis 4+ 10/10/16 06:00 Target Cells 2+ 10/10/16 06:00 Morphology Comment Slide scanned 10/10/16 06:00 Sodium 137 mmol/L (136-145) 10/10/16 06:00 Potassium 4.6 mmol/L (3.5-5.1) 10/10/16 06:00 Chloride 107 mmol/L (98-107) 10/10/16 06:00 Carbon Dioxide 19 mmol/L (21-32) L 10/10/16 06:00 Anion Gap 11 (8-16) 10/10/16 06:00 BUN 89 mg/dL (7-18) H 10/10/16 06:00 Creatinine 4.4 mg/dL (0.7-1.3) H 10/10/16 06:00 Creat Clearance w eGFR 12.91 (>60) 10/10/16 06:00 Random Glucose 98 mg/dL (74-106) 10/10/16 06:00 Lactic Acid 1.564 mmol/L (0.4-2.0) 10/08/16 11:00 Calcium 8.5 mg/dL (8.5-10.1) 10/10/16 06:00 Phosphorus 5.6 mg/dL (2.5-4.9) H D 10/10/16 06:00 Magnesium 2.4 mg/dL (1.8-2.4) 10/10/16 06:00 Total Bilirubin 19.0 mg/dL (0.2-1.0) H* 10/10/16 06:00 Direct Bilirubin 14.1 mg/dL (0.0-0.2) H* 10/08/16 11:00 AST 69 U/L (15-37) H 10/10/16 06:00 ALT 77 U/L (12-78) 10/10/16 06:00 Alkaline Phosphatase 396 U/L (45-117) H 10/10/16 06:00 Ammonia < 10.00 umol/L (11-32) L 10/08/16 11:15 LD Total 175 U/L (87-241) 10/09/16 17:20 Creatine Kinase 122 IU/L (39-308) 10/08/16 11:00 Troponin I < 0.02 ng/ml (0.00-0.05) D 10/08/16 11:00 Total Protein 6.2 g/dl (6.4-8.2) L 10/10/16 06:00 Albumin 2.8 g/dl (3.4-5.0) L 10/10/16 06:[address] Rosa and Dr Love appreciate input and assitance in his care Dr Alcantar will further discuss with him inability to provide further tx in view of clinical status. He has been seen by palliative care / and today by volunteer of [employer]. options to consider are 1 --Hospice care a home has Dementia and will not be able to comprehend current status 2 --[place] - but this would separate him from and his home Problem List - Problems (1) Pancreatic adenocarcinoma Code(s): C25.9 - MALIGNANT NEOPLASM OF PANCREAS, UNSPECIFIED (2) Liver metastases Code(s): C78.7 - SECONDARY MALIG NEOPLASM OF LIVER AND INTRAHEPATIC BILE DUCT (3) Jaundice Code(s): R17 - UNSPECIFIED JAUNDICE (4) Abdominal bloating Code(s): R14.0 - ABDOMINAL DISTENSION (GASEOUS) (5) Anemia Code(s): D64.9 - ANEMIA, UNSPECIFIED Qualifiers: 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 (6) Chronic kidney disease (CKD) Code(s): N18.9 - CHRONIC KIDNEY DISEASE, UNSPECIFIED Qualifiers: Chronic kidney disease stage: stage 3 (moderate) Qualified Code(s): N18.3 - Chronic kidney disease, stage 3 (moderate) (7) Chronic myeloproliferative disorder Code(s): D47.1 - CHRONIC MYELOPROLIFERATIVE DISEASE (8) HTN (hypertension) Code(s): I10 - ESSENTIAL (PRIMARY) HYPERTENSION Qualifiers: Hypertension type: essential hypertension Qualified Code(s): I10 - Essential (primary) hypertension (9) Hypothyroidism Code(s): E03.9 - HYPOTHYROIDISM, UNSPECIFIED Qualifiers: Hypothyroidism type: unspecified Qualified Code(s): E03.9 - Hypothyroidism, unspecified (10) Liver masses Code(s): R16.0 - HEPATOMEGALY, NOT ELSEWHERE CLASSIFIED (11) Presence of permanent cardiac pacemaker Code(s): Z95.0 - PRESENCE OF CARDIAC PACEMAKER
--- NOTE | 2016-10-10 19:18 | PN ---
Progress Note (short form) - Note Progress Note: Patient seen and examined Weak, debilitated , anorechtic, jaundiced. Developing renal insufficiency with rising BUBN, Creatinine. CHINCHILLA placed and patient has about 150 cc of urine, but complains of severe pain and will d/c it for now. Bilirubin markedly increased past few weeks. No significant ductal dilitation for stenting.Suggests intraparenchymal disease. Would have GI follow up on this however. Spoke with patient and informed that his liver and kidneys are failing. No further chemotherapy treatments at this time. . Discussed the fact that he is relatively immobile and may not be able to return to his residence in [facility]. Last Vital Signs Temp Pulse Resp BP Pulse Ox 97.3 F L 68 18 105/60 97 10/10/16 18:00 10/10/16 18:00 10/10/16 18:00 10/10/16 18:00 10/10/16 10:25 Current Medications Generic Name Dose Route Start Last Admin Trade Name Freq PRN Reason Stop Dose Admin Cholestyramine Resin 4 gm 10/10/16 22:00 Questran Packet - PO BID STANLEY Diphenhydramine HCl 50 mg 10/09/16 16:18 10/10/16 10:24 Benadryl - PO 50 mg Q4H PRN Administration ITCHING Febuxostat 80 mg 10/10/16 10:00 10/10/16 10:25 Uloric - PO 80 mg DAILY STANLEY Administration Hydromorphone HCl 1 mg 10/09/16 23:03 10/10/16 00:57 Dilaudid Injection - IVPB 1 mg Q4H PRN Administration PAIN Sodium Chloride 1,000 mls @ 83 mls/hr 10/09/16 16:30 10/10/16 16:38 Normal Saline - IV Not Given ASDIR [facility] Levothyroxine Sodium 50 mcg 10/09/16 07:00 10/10/16 06:13 Synthroid - PO 50 mcg DAILY@0700 ST[facility]LEY Administration Oxycodone HCl 5 mg 10/09/16 23:07 Roxicodone - PO Q4H PRN PAIN Tamsulosin HCl 0.4 mg 10/10/16 08:30 10/10/16 10:24 Flomax - PO 0.4 mg DAILY@0830 ST[facility]LEY Administration Icteric CBC, BMP 10/10/16 06:00 10/10/16 06:00 Cor: RSR, No murmurs, No gallops Lungs: diminished breath sounds Abd: Soft, Normal bowel sounds, No organomegaly, no significant tenderness Ext:No significant edema Skin: No rashes, Integument intact Impression: Pancreatic ca /liver mets RADHA S/P gemzar, abraxane Anemia Throbocytopenia MPD Pain management Plan: Continue IV diludid GI follow up Per patient -will discontinue chinchilla Monitor CBC Palliative care
[2016-10-10] MEDS: CHOLESTYRAMINE/SUCROSE 4 GM PACKET PO SCH ×2 (21:46→21:49)
[2016-10-11] MEDS: diphenhydrAMINE HCL 25 MG CAPSULE (FP) PO PRN (04:15)
[2016-10-11] MEDS: LEVOTHYROXINE NA 50 MCG TABLET (FP) PO SCH (06:13)
[2016-10-11 07:34] LABS: BASOPHIL 1.9 % (0-2.0); MCHC 35.2 g/dl (32.0-35.9); MEAN CELL VOLUME 116.1 fl (80-96); MEAN PLT VOLUME 10.9 fl (7.5-11.1); NEUTROPHILS 28.5 % (42.8-82.8); PLATELET COUNT 70 K/MM3 (134-434); RDW 15.7 % (11.9-15.9); WHITE BLOOD COUNT 5.6 K/mm3 (4.0-10.0)
[2016-10-11 09:30] LABS: MCH 40.8 pg (25.7-33.7)
[2016-10-11] MEDS ORDERED: PT OWN MED DRAWER 7, Y5N ONE ×2 (10:09→21:29)
[2016-10-11] MEDS: FEBUXOSTAT 80 MG TAB PO SCH (10:16)
[2016-10-11] MEDS: CHOLESTYRAMINE/SUCROSE 4 GM PACKET PO SCH ×2 (10:16→21:36)
[2016-10-11] MEDS: TAMSULOSIN HCL 0.4 MG CAP.ER.24H (FP) PO SCH (10:16)
[2016-10-11 10:41] LABS: ALBUMIN 2.7 g/dl (3.4-5.0); CALCIUM 8.7 mg/dL (8.5-10.1); CREATININE 4.8 mg/dL (0.7-1.3); MAGNESIUM 2.3 mg/dL (1.8-2.4); PHOSPHOROUS 5.9 mg/dL (2.5-4.9); TOT PROT 6.2 g/dl (6.4-8.2)
--- NOTE | 2016-10-11 12:04 | PN ---
Progress Note (short form) - Note Progress Note: Patient seen in follow up. Reporting diffuse abdominal pain, with family present and concerned. As per nurse has not requested any pain medication. Last dose of Dilaudid 1mg administered midnight. Meds reviewed. Current Medications Generic Name Dose Route Start Last Admin Trade Name Freq PRN Reason Stop Dose Admin Cholestyramine Resin 4 gm 10/10/16 22:00 10/11/16 10:16 Questran Packet - PO 4 gm BID STANLEY Administration Diphenhydramine HCl 50 mg 10/09/16 16:18 10/11/16 04:15 Benadryl - PO 50 mg Q4H PRN Administration ITCHING Febuxostat 80 mg 10/10/16 10:00 10/11/16 10:16 Uloric - PO 80 mg DAILY ST[facility]LEY Administration Hydromorphone HCl 1 mg 10/09/16 23:03 10/10/16 00:57 Dilaudid Injection - IVPB 1 mg Q4H PRN Administration PAIN Sodium Chloride 1,000 mls @ 83 mls/hr 10/09/16 16:30 10/10/16 16:38 Normal Saline - IV Not Given ASDIR [facility] Levothyroxine Sodium 50 mcg 10/09/16 07:00 10/11/16 06:13 Synthroid - PO 50 mcg DAILY@0700 [facility]LEY Administration Oxycodone HCl 5 mg 10/09/16 23:07 Roxicodone - PO Q4H PRN PAIN Tamsulosin HCl 0.4 mg 10/10/16 08:30 10/11/16 10:16 Flomax - PO 0.4 mg DAILY@0830 ST[facility]LEY Administration On examination: Last Vital Signs Temp Pulse Resp BP Pulse Ox 97.8 F 54 L 18 111/56 96 10/11/16 06:00 10/11/16 11:20 10/11/16 11:20 10/11/16 11:20 10/11/16 10:00 Lying in bed, comfortable. Not distressed. Deeply jaundiced. Chest: Clear Abdomen: Soft, diffusely tender. Neuro: Alert and interactive. CVS: S1, S2 Bilateral pedal edema. Assesment: Advanced pancreatic cancer, with diffuse liver metastases / likely biliary obstruction (intrahepatic) and worsening renal function. Poor prognosis and deemed appropriate for palliative care only at this time. Continue Dilaudid PRN, but with appropriate consideration for expected constipation and drowsiness (son would want him to be alert to interact with his who is visiting later today).
[2016-10-11] MEDS: ONDANSETRON 4 MG/2 ML VIAL IVPUSH PRN ×2 (12:11→21:35)
--- NOTE | 2016-10-11 14:22 | PN ---
Progress Note (short form) - Note Progress Note: Renal Follow up for RADHA Pt seen and examined at the bedside complains of lower abd pain chinchilla discontinued yesterday Vital Signs Temperature 97.8 F 10/11/16 14:00 Pulse Rate 50 L 10/11/16 14:00 Respiratory Rate 18 10/11/16 14:00 Blood Pressure 102/50 10/11/16 14:00 O2 Sat by Pulse Oximetry (%) 96 10/11/16 10:00 Intake & Output 10/08/16 10/09/16 10/10/16 10/11/16 23:59 23:59 23:59 23:59 Intake Total 400 1050 1086 Output Total 200 700 Balance 987 746 5662 Weight 195 lb Gen: Mild distress from abd pain CVS: RRR, No M/R Lungs: CTA, no rales or wheeze Abd: + tenderness RUQ, Lower Abd Ext: 1+ edema in LE, no cyanosis or clubbing. : Mild bladder distension CBC, BMP 10/11/16 06:00 10/11/16 06:00 Current Medications Cholestyramine Resin (Questran Packet -) 4 gm PO BID [facility] Last Admin: 10/11/16 10:16 Dose: 4 gm Diphenhydramine HCl (Benadryl -) 50 mg PO Q4H PRN PRN Reason: ITCHING Last Admin: 10/11/16 04:15 Dose: 50 mg Febuxostat (Uloric -) 80 mg PO DAILY [facility] Last Admin: 10/11/16 10:16 Dose: 80 mg Hydromorphone HCl (Dilaudid Injection -) 1 mg IVPB Q4H PRN PRN Reason: PAIN Last Admin: 10/10/16 00:57 Dose: 1 mg Sodium Bicarbonate 150 meq/ (Dextrose) 1,150 mls @ 75 mls/hr IV .[id number] [facility] Levothyroxine Sodium (Synthroid -) 50 mcg PO DAILY@0700 [facility] Last Admin: 10/11/16 06:13 Dose: 50 mcg Ondansetron HCl (Zofran Injection) 4 mg IVPUSH Q6H PRN PRN Reason: NAUSEA AND/OR VOMITING Last Admin: 10/11/16 12:11 Dose: 4 mg Oxycodone HCl (Roxicodone -) 5 mg PO Q4H PRN PRN Reason: PAIN Tamsulosin HCl (Flomax -) 0.4 mg PO DAILY@0830 [facility] Last Admin: 10/11/16 10:16 Dose: 0.4 mg A/P 81 year old Gentleman with PMhx of Metastatic Pancreatic Ca, Myeloproliferative disorder, Hypertension, CAD, COPD, BPH, Gout who presented with Nausea and vomiting and found to have RADHA with BUN/Cr of 80/3.6. 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
[2016-10-11] MEDS ORDERED: DEXTROSE 5%-WATER - 1,000 ML with SODIUM BICARBONATE 8.4% - 150 MEQ IV SCH ×2 (14:30→19:00)
[2016-10-11] MEDS ORDERED: HYDROmorphone HCL CARPU-JECT 1 MG/1 ML DISP.SYRIN IVPB PRN (23:09)
[2016-10-11] MEDS ORDERED: oxyCODONE HCL 5 MG TABLET PO PRN (23:10)
[2016-10-12] MEDS: diphenhydrAMINE HCL 25 MG CAPSULE (FP) PO PRN ×3 (01:19→09:36)
[2016-10-12] MEDS: LEVOTHYROXINE NA 50 MCG TABLET (FP) PO SCH ×2 (05:49→06:03)
[2016-10-12 07:02] LABS: CALCIUM 8.5 mg/dL (8.5-10.1); CREATININE 5.3 mg/dL (0.7-1.3); MAGNESIUM 2.3 mg/dL (1.8-2.4); PHOSPHOROUS 6.2 mg/dL (2.5-4.9)
--- NOTE | 2016-10-12 08:41 | PN ---
Progress Note (short form) - Note Progress Note: was in significant pain earlier this am - now sedated sleeping comfortably did not wake him up / Vital Signs Period Temp Pulse Resp BP Sys/Beverly Pulse Ox Last 24 Hr 97.8 F-99.1 F 50-58 18-20 102-118/50-61 96-96 jaundice lungs clear anteriorly chinchilla in p[lace with dark urine ext ++ edema CBC, BMP 10/11/16 06:00 10/12/16 06:00 renal function worse today will discuss plans for palliative care Problem List - Problems (1) Pancreatic adenocarcinoma Code(s): C25.9 - MALIGNANT NEOPLASM OF PANCREAS, UNSPECIFIED (2) Liver metastases Code(s): C78.7 - SECONDARY MALIG NEOPLASM OF LIVER AND INTRAHEPATIC BILE DUCT (3) Jaundice Code(s): R17 - UNSPECIFIED JAUNDICE (4) Abdominal bloating Code(s): R14.0 - ABDOMINAL DISTENSION (GASEOUS) (5) Anemia Code(s): D64.9 - ANEMIA, UNSPECIFIED Qualifiers: 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 (6) Chronic kidney disease (CKD) Code(s): N18.9 - CHRONIC KIDNEY DISEASE, UNSPECIFIED Qualifiers: Chronic kidney disease stage: stage 3 (moderate) Qualified Code(s): N18.3 - Chronic kidney disease, stage 3 (moderate) (7) Chronic myeloproliferative disorder Code(s): D47.1 - CHRONIC MYELOPROLIFERATIVE DISEASE (8) HTN (hypertension) Code(s): I10 - ESSENTIAL (PRIMARY) HYPERTENSION Qualifiers: Hypertension type: essential hypertension Qualified Code(s): I10 - Essential (primary) hypertension (9) Hypothyroidism Code(s): E03.9 - HYPOTHYROIDISM, UNSPECIFIED Qualifiers: Hypothyroidism type: unspecified Qualified Code(s): E03.9 - Hypothyroidism, unspecified (10) Liver masses Code(s): R16.0 - HEPATOMEGALY, NOT ELSEWHERE CLASSIFIED (11) Presence of permanent cardiac pacemaker Code(s): Z95.0 - PRESENCE OF CARDIAC PACEMAKER
[2016-10-12] MEDS: CHOLESTYRAMINE/SUCROSE 4 GM PACKET PO SCH ×3 (09:20→23:00)
[2016-10-12] MEDS ORDERED: PT OWN MED DRAWER 7, Y5N ONE ×2 (09:31→22:58)
[2016-10-12] MEDS: ONDANSETRON 4 MG/2 ML VIAL IVPUSH PRN ×2 (09:35→23:10)
[2016-10-12] MEDS: FEBUXOSTAT 80 MG TAB PO SCH (09:36)
[2016-10-12] MEDS: TAMSULOSIN HCL 0.4 MG CAP.ER.24H (FP) PO SCH (09:36)
--- NOTE | 2016-10-12 12:17 | PN ---
Progress Note (short form) - Note Progress Note: Patient seen in follow up. Episode vonmiting yesterday - has not recurred - possibly from Questran. Urinary retention yesterday, Lyons re-inserted, and patient comfortable with it. Reporting ongoing pruritis. Meds reviewed. Current Medications Generic Name Dose Route Start Last Admin Trade Name Freq PRN Reason Stop Dose Admin Cholestyramine Resin 4 gm 10/10/16 22:00 10/12/16 09:20 Questran Packet - PO Not Given BID [facility] Diphenhydramine HCl 50 mg 10/09/16 16:18 10/12/16 09:36 Benadryl - PO 50 mg Q4H PRN Administration ITCHING Febuxostat 80 mg 10/10/16 10:00 10/12/16 09:36 Uloric - PO 80 mg DAILY [facility] Administration Hydromorphone HCl 1 mg 10/11/16 23:09 10/12/16 07:21 Dilaudid Injection - IVPB 1 mg Q4H PRN Administration PAIN Sodium Bicarbonate 150 meq/ 1,150 mls @ 75 mls/hr 10/11/16 19:00 10/11/16 21:36 Dextrose IV 75 mls/hr .[id number] [facility] Administration Levothyroxine Sodium 50 mcg 10/09/16 07:00 10/12/16 06:03 Synthroid - PO Not Given DAILY@0700 [facility] Ondansetron HCl 4 mg 10/11/16 12:05 10/12/16 09:35 Zofran Injection IVPUSH 4 mg Q6H PRN Administration NAUSEA AND/OR VOMITING Oxycodone HCl 5 mg 10/11/16 23:10 Roxicodone - PO Q4H PRN PAIN Tamsulosin HCl 0.4 mg 10/10/16 08:30 10/12/16 09:36 Flomax - PO 0.4 mg DAILY@0830 [facility] Administration On examination: Last Vital Signs Temp Pulse Resp BP Pulse Ox 98 F 58 L 20 111/51 96 10/12/16 07:12 10/12/16 07:12 10/12/16 10:00 10/12/16 07:12 10/12/16 10:00 Lying in bed, comfortable. Not distressed. Deeply jaundiced. Chest: Clear Abdomen: Soft, diffusely tender. Neuro: Alert and interactive. CVS: S1, S2 Bilateral pedal edema. Assesment: Advanced pancreatic cancer, with diffuse liver metastases / likely biliary obstruction (intrahepatic) and worsening renal function. Poor prognosis and deemed appropriate for palliative care only at this time. Continue Dilaudid PRN, but with appropriate consideration for expected constipation and drowsiness. Benadryl and cholestyramine for pruritis.
[2016-10-12] MEDS ORDERED: DEXTROSE 5%-WATER - 1,000 ML with SODIUM BICARBONATE 8.4% - 150 MEQ IV SCH (16:30)
[2016-10-12] MEDS: DEXTROSE 5%-WATER - 1,000 ML with SODIUM BICARBONATE 8.4% - 150 MEQ IV SCH (17:44)
[2016-10-13] MEDS: diphenhydrAMINE HCL 25 MG CAPSULE (FP) PO PRN ×2 (04:51→16:23)
[2016-10-13] MEDS: DEXTROSE 5%-WATER - 1,000 ML with SODIUM BICARBONATE 8.4% - 150 MEQ IV SCH ×3 (06:58→23:54)
[2016-10-13] MEDS: LEVOTHYROXINE NA 50 MCG TABLET (FP) PO SCH (06:58)
[2016-10-13 08:18] LABS: CALCIUM 8.4 mg/dL (8.5-10.1); MAGNESIUM 2.2 mg/dL (1.8-2.4)
[2016-10-13 08:19] LABS: CREATININE 6.2 mg/dL (0.7-1.3); PHOSPHOROUS 6.5 mg/dL (2.5-4.9)
[2016-10-13] MEDS: TAMSULOSIN HCL 0.4 MG CAP.ER.24H (FP) PO SCH (08:58)
[2016-10-13] MEDS: CHOLESTYRAMINE/SUCROSE 4 GM PACKET PO SCH ×2 (08:59→17:28)
--- NOTE | 2016-10-13 09:30 | PN ---
Progress Note (short form) - Note Progress Note: Renal Follow up for RADHA Pt seen and examined at the bedside chinchilla re-inserted for retention awake and alert denies any acute pain or sob Vital Signs Temperature 97.9 F 10/13/16 05:13 Pulse Rate 87 10/13/16 05:13 Respiratory Rate 16 10/13/16 05:13 Blood Pressure 129/83 10/13/16 05:13 O2 Sat by Pulse Oximetry (%) 95 10/12/16 21:00 Intake & Output 10/10/16 10/11/16 10/12/16 10/13/16 23:59 23:59 23:59 23:59 Intake Total 1050 2217 1612.5 1070 Output Total 700 650 350 80 Balance 350 1567 1262.5 990 Gen: Mild distress from abd pain CVS: RRR, No M/R Lungs: CTA, no rales or wheeze Abd: + tenderness RUQ, Lower Abd Ext: 1+ edema in LE, no cyanosis or clubbing. : Mild bladder distension CBC, BMP 10/11/16 06:00 10/13/16 07:08 Current Medications Cholestyramine Resin (Questran Packet -) 4 gm PO BID [facility] Last Admin: 10/13/16 08:59 Dose: 4 gm Diphenhydramine HCl (Benadryl -) 50 mg PO Q4H PRN PRN Reason: ITCHING Last Admin: 10/13/16 04:51 Dose: 50 mg Febuxostat (Uloric -) 80 mg PO DAILY [facility] Last Admin: 10/12/16 09:36 Dose: 80 mg Hydromorphone HCl (Dilaudid Injection -) 1 mg IVPB Q4H PRN PRN Reason: PAIN Last Admin: 10/12/16 07:21 Dose: 1 mg Sodium Bicarbonate 150 meq/ (Dextrose) 1,150 mls @ 75 mls/hr IV Q15H [facility] Last Admin: 10/13/16 06:58 Dose: 75 mls/hr Levothyroxine Sodium (Synthroid -) 50 mcg PO DAILY@0700 [facility] Last Admin: 10/13/16 06:58 Dose: 50 mcg Ondansetron HCl (Zofran Injection) 4 mg IVPUSH Q6H PRN PRN Reason: NAUSEA AND/OR VOMITING Last Admin: 10/12/16 23:10 Dose: 4 mg Oxycodone HCl (Roxicodone -) 5 mg PO Q4H PRN PRN Reason: PAIN Tamsulosin HCl (Flomax -) 0.4 mg PO DAILY@0830 [facility] Last Admin: 10/13/16 08:58 Dose: 0.4 mg A/P 81 year old Gentleman with PMhx of Metastatic Pancreatic Ca, Myeloproliferative disorder, Hypertension, CAD, COPD, BPH, Gout who presented with Nausea and vomiting and found to have RADHA with BUN/Cr of 80/3.6. Baseline CR 1.7 #Acute Kidney Injury Renal function worsening and not responsive to IVF/volume expansion at this time pt would warrant CORRESPONDENCE REPRESENTATIVE however given advanced metastatic disease and very poor prognosis dialysis unlikely to improve overal mortality This was discussed with the patient who understood and says that he does not want any aggressive management Agree with palliative care eval and comfort care #Metabolic acidosis + Anion gap continue IVF with bicarb #Metastatic Pancreatic CA Oncology follow up Pain control #Anemia/Thrombocytopenia LDH is WNL, Haptoglobin WNL No acute indication for Transfusion Heme/Oncology following Poor prognosis Bryan Love DO
[2016-10-13] MEDS: FEBUXOSTAT 80 MG TAB PO SCH (09:45)
--- NOTE | 2016-10-13 14:09 | PN ---
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 patient voicing his wishes for Do Not Resuscitate and no intubation / life support c/o of pain and itching -- seems better with questran --- but continues with itching Vital Signs Period Temp Pulse Resp BP Sys/Beverly Pulse Ox Last 24 Hr 97.0 F-97.9 F 50-87 16-20 86-129/42-83 95-95 jaundice neck no JCD lungs grossly clear abd diffusely tender / mildly distended ext + edema CBC, BMP 10/11/16 06:00 10/13/16 07:08 CMP Sodium 133 mmol/L (136-145) L 10/13/16 07:08 Potassium 4.5 mmol/L (3.5-5.1) 10/13/16 07:08 Chloride 103 mmol/L (98-107) 10/13/16 07:08 Carbon Dioxide 19 mmol/L (21-32) L 10/13/16 07:08 Anion Gap 11 (8-16) 10/13/16 07:08 BUN 104 mg/dL (7-18) H 10/13/16 07:08 Creatinine 6.2 mg/dL (0.7-1.3) H 10/13/16 07:08 Creat Clearance w eGFR 11.68 (>60) 10/11/16 06:00 Random Glucose 129 mg/dL (74-106) H 10/13/16 07:08 Lactic Acid 1.564 mmol/L (0.4-2.0) 10/08/16 11:00 Calcium 8.4 mg/dL (8.5-10.1) L 10/13/16 07:08 Phosphorus 6.5 mg/dL (2.5-4.9) H 10/13/16 07:08 Magnesium 2.2 mg/dL (1.8-2.4) 10/13/16 07:08 Total Bilirubin 20.0 mg/dL (0.2-1.0) H* 10/11/16 06:00 Direct Bilirubin 14.1 mg/dL (0.0-0.2) H* 10/08/16 11:00 AST 72 U/L (15-37) H 10/11/16 06:00 ALT 79 U/L (12-78) H 10/11/16 06:00 Alkaline Phosphatase 393 U/L (45-117) H 10/11/16 06:00 Ammonia < 10.00 umol/L (11-32) L 10/08/16 11:15 LD Total 175 U/L (87-241) 10/09/16 17:20 Creatine Kinase 122 IU/L (39-308) 10/08/16 11:00 Troponin I < 0.02 ng/ml (0.00-0.05) D 10/08/16 11:00 Total Protein 6.2 g/dl (6.4-8.2) L 10/11/16 06:00 Albumin 2.7 g/dl (3.4-5.0) L 10/11/16 06:00 Active Medications Cholestyramine Resin (Questran Packet -) 4 gm PO BID [facility] Last Admin: 10/13/16 08:59 Dose: 4 gm Diphenhydramine HCl (Benadryl -) 50 mg PO Q4H PRN PRN Reason: ITCHING Last Admin: 10/13/16 04:51 Dose: 50 mg Febuxostat (Uloric -) 80 mg PO DAILY [facility] Last Admin: 10/13/16 09:45 Dose: 80 mg Hydromorphone HCl (Dilaudid Injection -) 1 mg IVPB Q4H PRN PRN Reason: PAIN Last Admin: 10/12/16 07:21 Dose: 1 mg Sodium Bicarbonate 150 meq/ (Dextrose) 1,150 mls @ 75 mls/hr IV Q15H [facility] Last Admin: 10/13/16 06:58 Dose: 75 mls/hr Levothyroxine Sodium (Synthroid -) 50 mcg PO DAILY@0700 [facility] Last Admin: 10/13/16 06:58 Dose: 50 mcg Ondansetron HCl (Zofran Injection) 4 mg IVPUSH Q6H PRN PRN Reason: NAUSEA AND/OR VOMITING Last Admin: 10/12/16 23:10 Dose: 4 mg Oxycodone HCl (Roxicodone -) 5 mg PO Q4H PRN PRN Reason: PAIN Tamsulosin HCl (Flomax -) 0.4 mg PO DAILY@0830 [facility] Last Admin: 10/13/16 08:58 Dose: 0.4 mg A/P 81 year old Gentleman with PMhx of Metastatic Pancreatic Ca, Myeloproliferative disorder, Hypertension, CAD, COPD, BPH, Gout who presented with Jaundice, Nausea and vomiting and found to have acute liver injury with T bili of 20 and RADHA with BUN/Cr of 80/3.6. #Metastatic Pancreatic CA discussed DNR /DNI -- patient signed request / order given Oncology opinion reviewed - patient unable to tolerate further TX Pain control / comfort care #Acute Kidney Injury Renal function worsening and not responsive to IVF not candidate for HD in view of untreatable metastatic disease #pain Patient already seen by palliative care team decision for hospice >> at home vs [facility] #itching wll increase questran to 8 grms bid Poor prognosis / comfort care/ Do Not resuscitate / do not intubate Problem List - Problems (1) Pancreatic adenocarcinoma Code(s): C25.9 - MALIGNANT NEOPLASM OF PANCREAS, UNSPECIFIED (2) Liver metastases Code(s): C78.7 - SECONDARY MALIG NEOPLASM OF LIVER AND INTRAHEPATIC BILE DUCT (3) Jaundice Code(s): R17 - UNSPECIFIED JAUNDICE (4) Abdominal bloating Code(s): R14.0 - ABDOMINAL DISTENSION (GASEOUS) (5) Anemia Code(s): D64.9 - ANEMIA, UNSPECIFIED Qualifiers: 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 (6) Chronic kidney disease (CKD) Code(s): N18.9 - CHRONIC KIDNEY DISEASE, UNSPECIFIED Qualifiers: Chronic kidney disease stage: stage 3 (moderate) Qualified Code(s): N18.3 - Chronic kidney disease, stage 3 (moderate) (7) Chronic myeloproliferative disorder Code(s): D47.1 - CHRONIC MYELOPROLIFERATIVE DISEASE (8) HTN (hypertension) Code(s): I10 - ESSENTIAL (PRIMARY) HYPERTENSION Qualifiers: Hypertension type: essential hypertension Qualified Code(s): I10 - Essential (primary) hypertension (9) Hypothyroidism Code(s): E03.9 - HYPOTHYROIDISM, UNSPECIFIED Qualifiers: Hypothyroidism type: unspecified Qualified Code(s): E03.9 - Hypothyroidism, unspecified (10) Liver masses Code(s): R16.0 - HEPATOMEGALY, NOT ELSEWHERE CLASSIFIED (11) Presence of permanent cardiac pacemaker Code(s): Z95.0 - PRESENCE OF CARDIAC PACEMAKER
[2016-10-13] MEDS ORDERED: HYDROmorphone HCL CARPU-JECT 1 MG/1 ML DISP.SYRIN IVPB PRN (16:06)
--- NOTE | 2016-10-13 16:38 | PN ---
Progress Note (short form) - Note Progress Note: CBD wnl on study without description of significant intrahepatic ductal dilatation. Suspect elevated bilirubin secondary to increasing liver tumor burden within the liver. No plans for ERCP and in light of metastatic disease and previous treatment course, palliative therapy would be reasonable.
[2016-10-13] MEDS ORDERED: PT OWN MED DRAWER 7, Y5N ONE (17:25)
--- NOTE | 2016-10-13 18:29 | PN ---
Progress Note (short form) - Note Progress Note: Patient seen and examined Denies any complaints Last Vital Signs Temp Pulse Resp BP Pulse Ox 97.8 F 55 L 20 82/40 95 10/13/16 15:34 10/13/16 15:34 10/13/16 15:34 10/13/16 15:34 10/13/16 09:45 Constitutional: Yes: Well Nourished, Calm Eyes: Yes: Other (jaundice) HENT: Yes: Atraumatic, Normocephalic Neck: Yes: Supple Cardiovascular: Yes: Regular Rate and Rhythm, Bradycardia Respiratory: Yes: Regular, CTA Bilaterally Gastrointestinal: Yes: Normal Bowel Sounds ext.--2+ edema b/l Abnormal Lab Results 10/13/16 07:08 Sodium 133 L Carbon Dioxide 19 L BUN 104 H Creatinine 6.2 H Random Glucose 129 H Calcium 8.4 L Phosphorus 6.5 H Current Medications Cholestyramine Resin (Questran Packet -) 8 gm PO BIDWM [facility] Last Admin: 10/13/16 17:28 Dose: 8 gm Diphenhydramine HCl (Benadryl -) 50 mg PO Q4H PRN PRN Reason: ITCHING Last Admin: 10/13/16 16:23 Dose: 50 mg Febuxostat (Uloric -) 80 mg PO DAILY [facility] Last Admin: 10/13/16 09:45 Dose: 80 mg Hydromorphone HCl (Dilaudid Injection -) 2 mg IVPB Q4H PRN PRN Reason: PAIN Last Admin: 10/13/16 17:35 Dose: 2 mg Sodium Bicarbonate 150 meq/ (Dextrose) 1,150 mls @ 75 mls/hr IV Q15H [facility] Last Admin: 10/13/16 06:58 Dose: 75 mls/hr Levothyroxine Sodium (Synthroid -) 50 mcg PO DAILY@0700 [facility] Last Admin: 10/13/16 06:58 Dose: 50 mcg Ondansetron HCl (Zofran Injection) 4 mg IVPUSH Q6H PRN PRN Reason: NAUSEA AND/OR VOMITING Last Admin: 10/12/16 23:10 Dose: 4 mg Oxycodone HCl (Roxicodone -) 5 mg PO Q4H PRN PRN Reason: PAIN Tamsulosin HCl (Flomax -) 0.4 mg PO DAILY@0830 [facility] Last Admin: 10/13/16 08:58 Dose: 0.4 mg A/P 81 y/o patient with HTN, hypothyroidism, , s/p pacemaker , MDS, metastatic pancreatic cancer on gemzar/abraxane now comes in with progressive disease, worsening jaundice. s/p gemzar/abraxane with good palliative, clinical benefit, now progressing agree with palliative/hospice care DNR/DNI increase dilaudid change benadryl to RTC for itching Zofran prn for nausea
[2016-10-13] MEDS: ONDANSETRON 4 MG/2 ML VIAL IVPUSH PRN (21:44)
[2016-10-13] MEDS ORDERED: oxyCODONE HCL 5 MG TABLET PO PRN (23:10)
[2016-10-14] MEDS: HYDROmorphone HCL CARPU-JECT 1 MG/1 ML DISP.SYRIN IVPB PRN ×2 (02:18→17:33)
[2016-10-14] MEDS ORDERED: PT OWN MED DRAWER 7, Y5N ONE (03:41)
[2016-10-14] MEDS: LEVOTHYROXINE NA 50 MCG TABLET (FP) PO SCH (06:09)
[2016-10-14 07:35] LABS: ALBUMIN 2.4 g/dl (3.4-5.0); CALCIUM 8.1 mg/dL (8.5-10.1)
[2016-10-14 08:24] LABS: TOT PROT 5.6 g/dl (6.4-8.2)
[2016-10-14 08:59] LABS: BILIRUBIN,TOTAL 21.9 mg/dL (0.2-1.0)
[2016-10-14] MEDS: FEBUXOSTAT 80 MG TAB PO SCH (09:44)
[2016-10-14] MEDS: CHOLESTYRAMINE/SUCROSE 4 GM PACKET PO SCH ×2 (09:44→17:33)
[2016-10-14] MEDS: TAMSULOSIN HCL 0.4 MG CAP.ER.24H (FP) PO SCH (09:48)
--- NOTE | 2016-10-14 12:17 | PN ---
Progress Note (short form) - Note Progress Note: Renal Follow up for RADHA Pt now comfort care DNR/DNI Vital Signs Temperature 97.5 F L 10/14/16 10:16 Pulse Rate 56 L 10/14/16 10:16 Respiratory Rate 19 10/14/16 10:16 Blood Pressure 83/39 10/14/16 10:16 O2 Sat by Pulse Oximetry (%) 95 10/14/16 09:00 Intake & Output 10/11/16 10/12/16 10/13/16 10/14/16 23:59 23:59 23:59 23:59 Intake Total 2217 1612.5 2290 700 Output Total 650 350 230 Balance 1567 1262.5 2060 700 Gen: Mild distress from abd pain CVS: RRR, No M/R Lungs: CTA, no rales or wheeze Abd: + tenderness RUQ, Lower Abd Ext: 1+ edema in LE, no cyanosis or clubbing. : Mild bladder distension CBC, BMP 10/11/16 06:00 10/14/16 05:35 A/P 81 year old Gentleman with PMhx of Metastatic Pancreatic Ca, Myeloproliferative disorder, Hypertension, CAD, COPD, BPH, Gout who presented with Nausea and vomiting and found to have RADHA with BUN/Cr of 80/3.6. Baseline CR 1.7 #Acute Kidney Injury in setting of metastic pancreatic Ca Pt is comfort care at this time avoid any further blood draws Dilaudid as needed for pain control Bryan Love DO
[2016-10-14] MEDS ORDERED: SODIUM PHOSPHATE/NA BIPHOS 133 ML ENEMA RC ONE (14:45)
[2016-10-14] MEDS ORDERED: POLYETHYLENE GLYCOL 3350 119 GM BTL PO SCH (14:45)
[2016-10-14] MEDS: DEXTROSE 5%-WATER - 1,000 ML with SODIUM BICARBONATE 8.4% - 150 MEQ IV SCH (17:27)
[2016-10-14] MEDS: CLOTRIMAZOLE 1% CREAM 15 GM TUBE TP SCH ×2 (17:32→21:31)
--- NOTE | 2016-10-14 19:46 | PN ---
Progress Note (short form) - Note Progress Note: Patient seen and examined Son at bedside and discussed status. Preterminal with liver and renal failure. Not responsive to verbal stimuli. When awake apparently complained of pruritus. Cholestyramine increase. Currently not alert enough for p.o. Last Vital Signs Temp Pulse Resp BP Pulse Ox 97.2 F L 64 18 103/49 95 10/14/16 18:27 10/14/16 18:27 10/14/16 18:27 10/14/16 18:27 10/14/16 09:00 Non responsive to verbal stimuli Icteric Diffuse rhonchi Stomach non tender CBC, BMP 10/11/16 06:00 10/14/16 05:35 Abnormal Lab Results 10/14/16 05:35 BUN 107 H* Creatinine 7.0 H Random Glucose 123 H Calcium 8.1 L Total Bilirubin 21.9 H* AST 89 H D ALT 79 H Alkaline Phosphatase 381 H Total Protein 5.6 L Albumin 2.4 L Current Medications Generic Name Dose Route Start Last Admin Trade Name Freq PRN Reason Stop Dose Admin Cholestyramine Resin 8 gm 10/13/16 17:30 10/14/16 17:33 Questran Packet - PO 8 gm BIDWM [facility] Administration Clotrimazole 1 applic 10/14/16 14:45 10/14/16 17:32 Lotrimin 1% Cream - TP 1 applic BID [facility] Administration Diphenhydramine HCl 50 mg 10/13/16 18:45 10/14/16 18:55 Benadryl Injection - IVPB 50 mg Q6H [facility] Administration Docusate Sodium 100 mg 10/14/16 22:00 Colace - PO BID [facility] Febuxostat 80 mg 10/10/16 10:00 10/14/16 09:44 Uloric - PO 80 mg DAILY [facility] Administration Hydromorphone HCl 2 mg 10/13/16 18:46 10/14/16 17:33 Dilaudid Injection - IVPB 2 mg Q3H PRN Administration PAIN Sodium Bicarbonate 150 meq/ 1,150 mls @ 75 mls/hr 10/12/16 16:45 10/14/16 17:27 Dextrose IV 75 mls/hr Q15H [facility] Administration Levothyroxine Sodium 50 mcg 10/09/16 07:00 10/14/16 06:09 Synthroid - PO 50 mcg DAILY@0700 [facility] Administration Ondansetron HCl 4 mg 10/11/16 12:05 10/13/16 21:44 Zofran Injection IVPUSH 4 mg Q6H PRN Administration NAUSEA AND/OR VOMITING Polyethylene Glycol 17 gm 10/14/16 14:45 10/14/16 17:31 Miralax (For Daily Use) - PO 17 gm DAILY [facility] Administration Tamsulosin HCl 0.4 mg 10/10/16 08:30 10/14/16 09:48 Flomax - PO 0.4 mg DAILY@0830 [facility] Administration Impression: Preterminal Metastatic Pancreatic ca Liver failure Renal failure. NPO No bloodletting
[2016-10-14] MEDS ORDERED: DOCUSATE SODIUM 100 MG CAPSULE (FP) PO SCH (22:00)
--- NOTE | 2016-10-14 23:36 | PN ---
Progress Note (short form) - Note Progress Note: recently sedated continues with c/o itching while awake Vital Signs Period Temp Pulse Resp BP Sys/Beverly Pulse Ox Last 24 Hr 97.2 F-98.3 F 56-98 16-20 71-112/28-63 94-95 icteric sedated resting comfortable CBC, BMP 10/11/16 06:00 10/14/16 05:35 Acute renal failure acute Liver failure Pancreatic CA with mets DNR / DNI status discussed and established with patient yesterday comfort care / pain [facility] [place] Problem List - Problems (1) Pancreatic adenocarcinoma Code(s): C25.9 - MALIGNANT NEOPLASM OF PANCREAS, UNSPECIFIED (2) Liver metastases Code(s): C78.7 - SECONDARY MALIG NEOPLASM OF LIVER AND INTRAHEPATIC BILE DUCT (3) Jaundice Code(s): R17 - UNSPECIFIED JAUNDICE (4) Abdominal bloating Code(s): R14.0 - ABDOMINAL DISTENSION (GASEOUS) (5) Anemia Code(s): D64.9 - ANEMIA, UNSPECIFIED Qualifiers: 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 (6) Chronic kidney disease (CKD) Code(s): N18.9 - CHRONIC KIDNEY DISEASE, UNSPECIFIED Qualifiers: Chronic kidney disease stage: stage 3 (moderate) Qualified Code(s): N18.3 - Chronic kidney disease, stage 3 (moderate) (7) Chronic myeloproliferative disorder Code(s): D47.1 - CHRONIC MYELOPROLIFERATIVE DISEASE (8) HTN (hypertension) Code(s): I10 - ESSENTIAL (PRIMARY) HYPERTENSION Qualifiers: Hypertension type: essential hypertension Qualified Code(s): I10 - Essential (primary) hypertension (9) Hypothyroidism Code(s): E03.9 - HYPOTHYROIDISM, UNSPECIFIED Qualifiers: Hypothyroidism type: unspecified Qualified Code(s): E03.9 - Hypothyroidism, unspecified (10) Liver masses Code(s): R16.0 - HEPATOMEGALY, NOT ELSEWHERE CLASSIFIED (11) Presence of permanent cardiac pacemaker Code(s): Z95.0 - PRESENCE OF CARDIAC PACEMAKER (12) Renal failure (ARF), acute on chronic Code(s): N17.9 - ACUTE KIDNEY FAILURE, UNSPECIFIED N18.9 - CHRONIC KIDNEY DISEASE, UNSPECIFIED (13) Liver failure, acute Qualifiers: Qualified Code(s): K72.00 - Acute and subacute hepatic failure without coma
[2016-10-15] MEDS: CHOLESTYRAMINE/SUCROSE 4 GM PACKET PO SCH ×2 (08:31→18:40)
[2016-10-15] MEDS ORDERED: PT OWN MED DRAWER 7, Y5N ONE (09:42)
[2016-10-15] MEDS: CLOTRIMAZOLE 1% CREAM 15 GM TUBE TP SCH ×2 (12:48→22:00)
[2016-10-15] MEDS: DEXTROSE 5%-WATER - 1,000 ML with SODIUM BICARBONATE 8.4% - 150 MEQ IV SCH ×2 (19:00→20:10)
[2016-10-15] MEDS: HYDROmorphone HCL CARPU-JECT 1 MG/1 ML DISP.SYRIN IVPB PRN (19:42)
--- NOTE | 2016-10-15 23:29 | PN ---
Progress Note (short form) - Note Progress Note: seen and examined this evening both sons at bedside awake alert able to ans questions, and make known his wishes. discussed with sons plans for terminal care Patient wishes to remain in hospital until the end, however this may not be possible consideration for home hospice discussed with sons Vital Signs Period Temp Pulse Resp BP Sys/Beverly Pulse Ox Last 24 Hr 97.2 F-98 F 61-68 18-20 93-109/43-57 jaundice oriented X3 lungs scattered rhonchi abd distended ext + edema CBC, BMP 10/11/16 06:00 10/14/16 05:35 Pancreatic Ca with mets acute liver and renal Failure terminal Current Medications Cholestyramine Resin (Questran Light Packet -) 8 gm PO BIDWM [facility] Clotrimazole (Lotrimin 1% Cream -) 1 applic TP BID [facility] Last Admin: 10/15/16 22:00 Dose: 1 applic Diphenhydramine HCl (Benadryl Injection -) 50 mg IVPB Q6H [facility] Last Admin: 10/15/16 18:46 Dose: 50 mg Hydromorphone HCl (Dilaudid Injection -) 2 mg IVPB Q3H PRN PRN Reason: PAIN Sodium Bicarbonate 150 meq/ (Dextrose) 1,150 mls @ 75 mls/hr IV Q15H [facility] Last Admin: 10/15/16 20:10 Dose: 75 mls/hr Ondansetron HCl (Zofran Injection) 4 mg IVPUSH Q6H PRN PRN Reason: NAUSEA AND/OR VOMITING Last Admin: 10/13/16 21:44 Dose: 4 mg D/C'd NPO order if he wishes to have anything orally nurses instructed to comply but attentive to aspiration precautions plans comfort care Problem List - Problems (1) Pancreatic adenocarcinoma Code(s): C25.9 - MALIGNANT NEOPLASM OF PANCREAS, UNSPECIFIED (2) Liver metastases Code(s): C78.7 - SECONDARY MALIG NEOPLASM OF LIVER AND INTRAHEPATIC BILE DUCT (3) Jaundice Code(s): R17 - UNSPECIFIED JAUNDICE (4) Abdominal bloating Code(s): R14.0 - ABDOMINAL DISTENSION (GASEOUS) (5) Anemia Code(s): D64.9 - ANEMIA, UNSPECIFIED Qualifiers: 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 (6) Chronic kidney disease (CKD) Code(s): N18.9 - CHRONIC KIDNEY DISEASE, UNSPECIFIED Qualifiers: Chronic kidney disease stage: stage 3 (moderate) Qualified Code(s): N18.3 - Chronic kidney disease, stage 3 (moderate) (7) Chronic myeloproliferative disorder Code(s): D47.1 - CHRONIC MYELOPROLIFERATIVE DISEASE (8) HTN (hypertension) Code(s): I10 - ESSENTIAL (PRIMARY) HYPERTENSION Qualifiers: Hypertension type: essential hypertension Qualified Code(s): I10 - Essential (primary) hypertension (9) Hypothyroidism Code(s): E03.9 - HYPOTHYROIDISM, UNSPECIFIED Qualifiers: Hypothyroidism type: unspecified Qualified Code(s): E03.9 - Hypothyroidism, unspecified (10) Liver masses Code(s): R16.0 - HEPATOMEGALY, NOT ELSEWHERE CLASSIFIED (11) Presence of permanent cardiac pacemaker Code(s): Z95.0 - PRESENCE OF CARDIAC PACEMAKER (12) Renal failure (ARF), acute on chronic Code(s): N17.9 - ACUTE KIDNEY FAILURE, UNSPECIFIED N18.9 - CHRONIC KIDNEY DISEASE, UNSPECIFIED (13) Liver failure, acute Qualifiers: Qualified Code(s): K72.00 - Acute and subacute hepatic failure without coma
[2016-10-16] MEDS: HYDROmorphone HCL CARPU-JECT 2 MG/1 ML DISP.SYRIN IVPB PRN ×4 (00:35→16:29)
[2016-10-16] MEDS: CHOLESTYRAMINE/ASPARTAME 4 GM PACKET PO SCH ×2 (10:01→17:36)
[2016-10-16] MEDS: DEXTROSE 5%-WATER - 1,000 ML with SODIUM BICARBONATE 8.4% - 150 MEQ IV SCH ×2 (12:22→17:00)
[2016-10-16] MEDS: CLOTRIMAZOLE 1% CREAM 15 GM TUBE TP SCH ×2 (13:24→21:08)
[2016-10-16] MEDS ORDERED: morphine CARPU-JECT 2 MG/1 ML DISP.SYRIN IVPUSH PRN (22:57)
[2016-10-16] MEDS ORDERED: PT OWN MED DRAWER 7, Y5N ONE (23:08)
--- NOTE | 2016-10-16 23:12 | PN ---
Progress Note (short form) - Note Progress Note: sedated but still looking uncomfortable staff reports poor PO intake - will take some fluid Vital Signs Period Temp Pulse Resp BP Sys/Beverly Pulse Ox Last 24 Hr 97.2 F-97.5 F 58-83 16-20 73-144/40-53 91-92 Jaundice uncomfotable will continue to provide comfort care . palliative care to assist dx Pancreatic CA with mets acute liver failure acute renal failure plans comfort care do not resuscitate / do not intubate change to Morphine IV Problem List - Problems (1) Pancreatic adenocarcinoma Code(s): C25.9 - MALIGNANT NEOPLASM OF PANCREAS, UNSPECIFIED (2) Liver metastases Code(s): C78.7 - SECONDARY MALIG NEOPLASM OF LIVER AND INTRAHEPATIC BILE DUCT (3) Jaundice Code(s): R17 - UNSPECIFIED JAUNDICE (4) Abdominal bloating Code(s): R14.0 - ABDOMINAL DISTENSION (GASEOUS) (5) Anemia Code(s): D64.9 - ANEMIA, UNSPECIFIED Qualifiers: 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 (6) Chronic kidney disease (CKD) Code(s): N18.9 - CHRONIC KIDNEY DISEASE, UNSPECIFIED Qualifiers: Chronic kidney disease stage: stage 3 (moderate) Qualified Code(s): N18.3 - Chronic kidney disease, stage 3 (moderate) (7) Chronic myeloproliferative disorder Code(s): D47.1 - CHRONIC MYELOPROLIFERATIVE DISEASE (8) HTN (hypertension) Code(s): I10 - ESSENTIAL (PRIMARY) HYPERTENSION Qualifiers: Hypertension type: essential hypertension Qualified Code(s): I10 - Essential (primary) hypertension (9) Hypothyroidism Code(s): E03.9 - HYPOTHYROIDISM, UNSPECIFIED Qualifiers: Hypothyroidism type: unspecified Qualified Code(s): E03.9 - Hypothyroidism, unspecified (10) Liver masses Code(s): R16.0 - HEPATOMEGALY, NOT ELSEWHERE CLASSIFIED (11) Presence of permanent cardiac pacemaker Code(s): Z95.0 - PRESENCE OF CARDIAC PACEMAKER (12) Renal failure (ARF), acute on chronic Code(s): N17.9 - ACUTE KIDNEY FAILURE, UNSPECIFIED N18.9 - CHRONIC KIDNEY DISEASE, UNSPECIFIED (13) Liver failure, acute Qualifiers: Qualified Code(s): K72.00 - Acute and subacute hepatic failure without coma
[2016-10-17] MEDS: DEXTROSE 5%-WATER - 1,000 ML with SODIUM BICARBONATE 8.4% - 150 MEQ IV SCH (00:34)
--- NOTE | 2016-10-17 08:44 | PN ---
Progress Note (short form) - Note Progress Note: Patient seen and examined. Little p.o. Complains of headache Little output Awake and responsive Last Vital Signs Temp Pulse Resp BP Pulse Ox 97.2 F L 60 16 80/43 92 L 10/17/16 06:00 10/17/16 08:17 10/17/16 08:17 10/17/16 08:17 10/16/16 21:00 Icteric Lungs- decreased breath sounds bilaterally Cor _RSR Abd- distended, probable ascites, non tender Scrotal edema with chinchilla catheter LE edema Impression: Metastatic pancreatic ca Liver Mets Myeloproliferative disorder RADHA,Renal failure Pain management DNR/DNI Plan: Begin morphine drip at 0.5 cc/hr. Comfort care.
[2016-10-17] MEDS: CLOTRIMAZOLE 1% CREAM 15 GM TUBE TP SCH ×2 (10:12→23:11)
[2016-10-17] MEDS: MORPHINE 100 MG in SODIUM CHLORIDE 98 ML IVPB SCH (10:12)
[2016-10-17] MEDS: CHOLESTYRAMINE/ASPARTAME 4 GM PACKET PO SCH ×2 (10:13→17:11)
[2016-10-17] MEDS ORDERED: morphine CARPU-JECT 2 MG/1 ML DISP.SYRIN ONE (12:01)
[2016-10-17] MEDS ORDERED: morphine CARPU-JECT 2 MG/1 ML DISP.SYRIN IVPUSH ONE (12:45)
[2016-10-18] MEDS: CHOLESTYRAMINE/ASPARTAME 4 GM PACKET PO SCH ×2 (10:12→18:37)
[2016-10-18] MEDS: MORPHINE 100 MG in SODIUM CHLORIDE 98 ML IVPB SCH (10:12)
[2016-10-18] MEDS: CLOTRIMAZOLE 1% CREAM 15 GM TUBE TP SCH ×2 (10:14→22:44)
--- NOTE | 2016-10-18 14:08 | PN ---
Progress Note (short form) - Note Progress Note: Oncology Follow-up Note Patient seen and examined today. He is sleeping comfortably. Last Vital Signs Temp Pulse Resp BP Pulse Ox 97.0 F L 61 16 99/44 92 L 10/18/16 06:00 10/18/16 10:15 10/18/16 10:15 10/18/16 10:15 10/17/16 21:00 Physical Exam : Appears comfortable, icteric Soft but distended abdomen chinchilla in place, scrotal edema LE 3+ pitting edema Labs :Not being drawn daily A/P : 81 y/o male with metastatic pancreatic cancer, liver and renal failure and MPN - Currently on comfort care with morphine drip, can uptitrate as necessary -DNR/DNI -We will continue to follow
--- NOTE | 2016-10-18 18:09 | PN ---
Progress Note (short form) - Note Progress Note: sedated on Morphine drip arousable with tactile stimulus Vital Signs Period Temp Pulse Resp BP Sys/Beverly Pulse Ox Last 24 Hr 97.0 F-97.4 F 61-72 16-18 81-99/44-72 90-92 neck + jvd heart reg lungs BS abd distended / tenderness diffuse ext + edema Active Medications Cholestyramine Resin (Questran Light Packet -) 8 gm PO BIDWM [facility] Last Admin: 10/18/16 10:12 Dose: Not Given Clotrimazole (Lotrimin 1% Cream -) 1 applic TP BID [facility] Last Admin: 10/18/16 10:14 Dose: 1 applic Diphenhydramine HCl (Benadryl Injection -) 50 mg IVPB Q6H [facility] Last Admin: 10/18/16 13:21 Dose: 50 mg Morphine Sulfate 100 mg/ (Sodium Chloride) 100 mls @ 0.5 mls/hr IVPB TITR [facility]; 0.5 MG/HR PRN Reason: Protocol Last Titration: 10/18/16 16:58 Dose: 1 mg/hr Ondansetron HCl (Zofran Injection) 4 mg IVPUSH Q6H PRN PRN Reason: NAUSEA AND/OR VOMITING Last Admin: 10/13/16 21:44 Dose: 4 mg Pancreatic Ca Renal failure liver failure plan comfort care continue with morphine drip Problem List - Problems (1) Pancreatic adenocarcinoma Code(s): C25.9 - MALIGNANT NEOPLASM OF PANCREAS, UNSPECIFIED (2) Liver metastases Code(s): C78.7 - SECONDARY MALIG NEOPLASM OF LIVER AND INTRAHEPATIC BILE DUCT (3) Jaundice Code(s): R17 - UNSPECIFIED JAUNDICE (4) Abdominal bloating Code(s): R14.0 - ABDOMINAL DISTENSION (GASEOUS) (5) Anemia Code(s): D64.9 - ANEMIA, UNSPECIFIED Qualifiers: 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 (6) Chronic kidney disease (CKD) Code(s): N18.9 - CHRONIC KIDNEY DISEASE, UNSPECIFIED Qualifiers: Chronic kidney disease stage: stage 3 (moderate) Qualified Code(s): N18.3 - Chronic kidney disease, stage 3 (moderate) (7) Chronic myeloproliferative disorder Code(s): D47.1 - CHRONIC MYELOPROLIFERATIVE DISEASE (8) HTN (hypertension) Code(s): I10 - ESSENTIAL (PRIMARY) HYPERTENSION Qualifiers: Hypertension type: essential hypertension Qualified Code(s): I10 - Essential (primary) hypertension (9) Hypothyroidism Code(s): E03.9 - HYPOTHYROIDISM, UNSPECIFIED Qualifiers: Hypothyroidism type: unspecified Qualified Code(s): E03.9 - Hypothyroidism, unspecified (10) Liver masses Code(s): R16.0 - HEPATOMEGALY, NOT ELSEWHERE CLASSIFIED (11) Presence of permanent cardiac pacemaker Code(s): Z95.0 - PRESENCE OF CARDIAC PACEMAKER (12) Renal failure (ARF), acute on chronic Code(s): N17.9 - ACUTE KIDNEY FAILURE, UNSPECIFIED N18.9 - CHRONIC KIDNEY DISEASE, UNSPECIFIED (13) Liver failure, acute Qualifiers: Qualified Code(s): K72.00 - Acute and subacute hepatic failure without coma
--- NOTE | 2016-10-18 18:16 | PN ---
Progress Note (short form) - Note Progress Note: poor to no intake uncomfortable awake Vital Signs Period Temp Pulse Resp BP Sys/Beverly Pulse Ox Last 24 Hr 97.0 F-97.4 F 61-72 16-18 81-99/44-72 90-92 jaundice neck + jvd lungs scattered rhonchi abd distended ext + edema Pancreatic Ca Terminal Liver and renal failure comfort care Problem List - Problems (1) Pancreatic adenocarcinoma Code(s): C25.9 - MALIGNANT NEOPLASM OF PANCREAS, UNSPECIFIED (2) Liver metastases Code(s): C78.7 - SECONDARY MALIG NEOPLASM OF LIVER AND INTRAHEPATIC BILE DUCT (3) Jaundice Code(s): R17 - UNSPECIFIED JAUNDICE (4) Abdominal bloating Code(s): R14.0 - ABDOMINAL DISTENSION (GASEOUS) (5) Anemia Code(s): D64.9 - ANEMIA, UNSPECIFIED Qualifiers: 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 (6) Chronic kidney disease (CKD) Code(s): N18.9 - CHRONIC KIDNEY DISEASE, UNSPECIFIED Qualifiers: Chronic kidney disease stage: stage 3 (moderate) Qualified Code(s): N18.3 - Chronic kidney disease, stage 3 (moderate) (7) Chronic myeloproliferative disorder Code(s): D47.1 - CHRONIC MYELOPROLIFERATIVE DISEASE (8) HTN (hypertension) Code(s): I10 - ESSENTIAL (PRIMARY) HYPERTENSION Qualifiers: Hypertension type: essential hypertension Qualified Code(s): I10 - Essential (primary) hypertension (9) Hypothyroidism Code(s): E03.9 - HYPOTHYROIDISM, UNSPECIFIED Qualifiers: Hypothyroidism type: unspecified Qualified Code(s): E03.9 - Hypothyroidism, unspecified (10) Liver masses Code(s): R16.0 - HEPATOMEGALY, NOT ELSEWHERE CLASSIFIED (11) Presence of permanent cardiac pacemaker Code(s): Z95.0 - PRESENCE OF CARDIAC PACEMAKER (12) Renal failure (ARF), acute on chronic Code(s): N17.9 - ACUTE KIDNEY FAILURE, UNSPECIFIED N18.9 - CHRONIC KIDNEY DISEASE, UNSPECIFIED (13) Liver failure, acute Qualifiers: Qualified Code(s): K72.00 - Acute and subacute hepatic failure without coma
[2016-10-19] MEDS: CHOLESTYRAMINE/ASPARTAME 4 GM PACKET PO SCH ×2 (09:29→17:46)
[2016-10-19] MEDS: MORPHINE 100 MG in SODIUM CHLORIDE 98 ML IVPB SCH ×2 (09:45→12:41)
[2016-10-19] MEDS: CLOTRIMAZOLE 1% CREAM 15 GM TUBE TP SCH ×2 (10:25→22:21)
--- NOTE | 2016-10-19 13:42 | PN ---
Progress Note (short form) - Note Progress Note: poor to no intake uncomfortable in spite of Morphine drip @ 1mg/hr awake / moaning Vital Signs Period Temp Pulse Resp BP Sys/Beverly Pulse Ox Last 24 Hr 97.0 F-97.4 F 61-72 16-18 81-99/44-72 90-92 jaundice neck + jvd lungs scattered rhonchi abd distended ext + edema Pancreatic Ca Terminal Liver and renal failure comfort care increase Morphine drip to 2mg/hr if remains uncomfortable may need to increase Problem List - Problems (1) Pancreatic adenocarcinoma Code(s): C25.9 - MALIGNANT NEOPLASM OF PANCREAS, UNSPECIFIED (2) Liver metastases Code(s): C78.7 - SECONDARY MALIG NEOPLASM OF LIVER AND INTRAHEPATIC BILE DUCT (3) Jaundice Code(s): R17 - UNSPECIFIED JAUNDICE (4) Abdominal bloating Code(s): R14.0 - ABDOMINAL DISTENSION (GASEOUS) (5) Anemia Code(s): D64.9 - ANEMIA, UNSPECIFIED Qualifiers: 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 (6) Chronic kidney disease (CKD) Code(s): N18.9 - CHRONIC KIDNEY DISEASE, UNSPECIFIED Qualifiers: Chronic kidney disease stage: stage 3 (moderate) Qualified Code(s): N18.3 - Chronic kidney disease, stage 3 (moderate) (7) Chronic myeloproliferative disorder Code(s): D47.1 - CHRONIC MYELOPROLIFERATIVE DISEASE (8) HTN (hypertension) Code(s): I10 - ESSENTIAL (PRIMARY) HYPERTENSION Qualifiers: Hypertension type: essential hypertension Qualified Code(s): I10 - Essential (primary) hypertension (9) Hypothyroidism Code(s): E03.9 - HYPOTHYROIDISM, UNSPECIFIED Qualifiers: Hypothyroidism type: unspecified Qualified Code(s): E03.9 - Hypothyroidism, unspecified (10) Liver masses Code(s): R16.0 - HEPATOMEGALY, NOT ELSEWHERE CLASSIFIED (11) Presence of permanent cardiac pacemaker Code(s): Z95.0 - PRESENCE OF CARDIAC PACEMAKER (12) Renal failure (ARF), acute on chronic Code(s): N17.9 - ACUTE KIDNEY FAILURE, UNSPECIFIED N18.9 - CHRONIC KIDNEY DISEASE, UNSPECIFIED (13) Liver failure, acute Qualifiers: Qualified Code(s): K72.00 - Acute and subacute hepatic failure without coma
[2016-10-20] MEDS: MORPHINE 100 MG in SODIUM CHLORIDE 98 ML IVPB SCH (02:14)
[2016-10-20 06:14] VITALS: PULSE 67
--- NOTE | 2016-10-20 08:46 | PN ---
Progress Note (short form) - Note Progress Note: jaundice OB elevated moaning / uncomfortable Morphine drip at 3.5 mg/hr Vital Signs Period Temp Pulse Resp BP Sys/Beverly Pulse Ox Last 24 Hr 97.3 F-97.9 F 57-67 14-20 59-106/30-49 90-92 palliative care Morphine drip will increase to 5mg/hr Problem List - Problems (1) Pancreatic adenocarcinoma Code(s): C25.9 - MALIGNANT NEOPLASM OF PANCREAS, UNSPECIFIED (2) Liver metastases Code(s): C78.7 - SECONDARY MALIG NEOPLASM OF LIVER AND INTRAHEPATIC BILE DUCT (3) Jaundice Code(s): R17 - UNSPECIFIED JAUNDICE (4) Abdominal bloating Code(s): R14.0 - ABDOMINAL DISTENSION (GASEOUS) (5) Anemia Code(s): D64.9 - ANEMIA, UNSPECIFIED Qualifiers: 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 (6) Chronic kidney disease (CKD) Code(s): N18.9 - CHRONIC KIDNEY DISEASE, UNSPECIFIED Qualifiers: Chronic kidney disease stage: stage 3 (moderate) Qualified Code(s): N18.3 - Chronic kidney disease, stage 3 (moderate) (7) Chronic myeloproliferative disorder Code(s): D47.1 - CHRONIC MYELOPROLIFERATIVE DISEASE (8) HTN (hypertension) Code(s): I10 - ESSENTIAL (PRIMARY) HYPERTENSION Qualifiers: Hypertension type: essential hypertension Qualified Code(s): I10 - Essential (primary) hypertension (9) Hypothyroidism Code(s): E03.9 - HYPOTHYROIDISM, UNSPECIFIED Qualifiers: Hypothyroidism type: unspecified Qualified Code(s): E03.9 - Hypothyroidism, unspecified (10) Liver masses Code(s): R16.0 - HEPATOMEGALY, NOT ELSEWHERE CLASSIFIED (11) Presence of permanent cardiac pacemaker Code(s): Z95.0 - PRESENCE OF CARDIAC PACEMAKER (12) Renal failure (ARF), acute on chronic Code(s): N17.9 - ACUTE KIDNEY FAILURE, UNSPECIFIED N18.9 - CHRONIC KIDNEY DISEASE, UNSPECIFIED (13) Liver failure, acute Qualifiers: Qualified Code(s): K72.00 - Acute and subacute hepatic failure without coma
[2016-10-20] MEDS ORDERED: MORPHINE 100 MG in SODIUM CHLORIDE 98 ML IVPB SCH (09:45)
[2016-10-20] MEDS: CHOLESTYRAMINE/ASPARTAME 4 GM PACKET PO SCH (09:59)
--- NOTE | 2016-10-20 11:29 | PN ---
Progress Note, Physician Chief Complaint: Patient continues to be on Hospice care. On pain medications. Severe azotemia persists. - Current Medication List Current Medications: Active Medications Cholestyramine Resin (Questran Light Packet -) 8 gm PO BIDWM [facility] Last Admin: 10/20/16 09:59 Dose: Not Given Clotrimazole (Lotrimin 1% Cream -) 1 applic TP BID [facility] Last Admin: 10/19/16 22:21 Dose: 1 applic Diphenhydramine HCl (Benadryl Injection -) 50 mg IVPB Q6H [facility] Last Admin: 10/20/16 05:44 Dose: Not Given Morphine Sulfate 100 mg/ (Sodium Chloride) 100 mls @ 5 mls/hr IVPB TITR [facility]; 5 MG/HR PRN Reason: Protocol Ondansetron HCl (Zofran Injection) 4 mg IVPUSH Q6H PRN PRN Reason: NAUSEA AND/OR VOMITING Last Admin: 10/13/16 21:44 Dose: 4 mg - Objective Vital Signs: Vital Signs Temperature 97.5 F L 10/20/16 06:13 Pulse Rate 67 10/20/16 06:13 Respiratory Rate 18 10/20/16 06:13 Blood Pressure 63/37 10/20/16 06:13 O2 Sat by Pulse Oximetry (%) 92 L 10/19/16 20:51 Labs: CBC, BMP 10/11/16 06:00 10/14/16 05:35 INR, PTT INR 1.58 (0.82-1.09) H D 10/09/16 05:35 Problem List - Problems (1) Altered mental status Code(s): R41.82 - ALTERED MENTAL STATUS, UNSPECIFIED Qualifiers: Altered mental status type: disorientation Qualified Code(s): R41.0 - Disorientation, unspecified (2) Anemia Code(s): D64.9 - ANEMIA, UNSPECIFIED Qualifiers: 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 (3) Chronic kidney disease (CKD) Code(s): N18.9 - CHRONIC KIDNEY DISEASE, UNSPECIFIED Qualifiers: Chronic kidney disease stage: stage 3 (moderate) Qualified Code(s): N18.3 - Chronic kidney disease, stage 3 (moderate) (4) Chronic myeloproliferative disorder Code(s): D47.1 - CHRONIC MYELOPROLIFERATIVE DISEASE (5) HTN (hypertension) Code(s): I10 - ESSENTIAL (PRIMARY) HYPERTENSION Qualifiers: Hypertension type: essential hypertension Qualified Code(s): I10 - Essential (primary) hypertension (6) Hepatic encephalopathy Code(s): K72.90 - HEPATIC FAILURE, UNSPECIFIED WITHOUT COMA (7) Hypothyroidism Code(s): E03.9 - HYPOTHYROIDISM, UNSPECIFIED Qualifiers: Hypothyroidism type: unspecified Qualified Code(s): E03.9 - Hypothyroidism, unspecified (8) Jaundice Code(s): R17 - UNSPECIFIED JAUNDICE (9) Liver failure, acute Qualifiers: Qualified Code(s): K72.00 - Acute and subacute hepatic failure without coma (10) Liver masses Code(s): R16.0 - HEPATOMEGALY, NOT ELSEWHERE CLASSIFIED (11) Liver metastases Code(s): C78.7 - SECONDARY MALIG NEOPLASM OF LIVER AND INTRAHEPATIC BILE DUCT (12) Pancreatic adenocarcinoma Code(s): C25.9 - MALIGNANT NEOPLASM OF PANCREAS, UNSPECIFIED (13) Renal failure (ARF), acute on chronic Code(s): N17.9 - ACUTE KIDNEY FAILURE, UNSPECIFIED N18.9 - CHRONIC KIDNEY DISEASE, UNSPECIFIED Assessment/Plan General status deteriorating. On Hospice care. No specific interventions. Thanks again. Mila Richards MD
[2016-10-20 15:46] VITALS: BP 62/35; TEMP 98.1
--- NOTE | 2016-10-20 17:12 | HOSP ---
Subjective - Review of Symptoms Events since last encounter: Asked to pronounce patient. Subjective: This is an 81-year-old man with a history of metastatic pancreatic adenocarcinoma, myeloproliferative disorder, stage 3 CKD, HTN, hypothyroidism, hyperlipidemia, CAD, atrial fibrillation, COPD, BPH, Alzheimer dementia who was admitted for confusion. He had been treated with chemotherapy but was not responding. Morphine drip was started for comfort care. Found patient lying in bed unresponsive and jaundiced. Physical Examination Findings/Remarks: Patient is unresponsive. No spontaneous respirations. No apical heartbeat. Hospitalist Encounter Assessment: Patient at 4:57 pm on October 20, 2016.
== END 2016-10-20 18:30 | disposition expired | DRG 435 ==
LOC: JER 10:24 → UNDOADMIN 13:49 → JERBED 13:49 → J4S 14:58 → JERBED 14:58 → J4S 10-09 23:00
PROVIDERS: ADMIT Family Medicine; ATTEND Family Medicine
DX: C25.7 Malignant neoplasm of other parts of pancreas (principal); K72.00 Acute and subacute hepatic failure without coma; C78.7 Secondary malignant neoplasm of liver and intrahepatic bile duct; N17.9 Acute kidney failure, unspecified; E87.2 Acidosis; E78.5 Hyperlipidemia, unspecified; I25.10 Atherosclerotic heart disease of native coronary artery without angina pectoris; I48.91 Unspecified atrial fibrillation; J44.9 Chronic obstructive pulmonary disease, unspecified; N40.0 Benign prostatic hyperplasia without lower urinary tract symptoms; E03.9 Hypothyroidism, unspecified; I50.9 Heart failure, unspecified; K80.80 Other cholelithiasis without obstruction; D64.9 Anemia, unspecified; D69.6 Thrombocytopenia, unspecified; M10.9 Gout, unspecified; G30.9 Alzheimer's disease, unspecified; F02.80 Dementia in other diseases classified elsewhere, unspecified severity, without behavioral disturbance, psychotic disturbance, mood disturbance, and anxiety; B35.1 Tinea unguium; I13.10 Hypertensive heart and chronic kidney disease without heart failure, with stage 1 through stage 4 chronic kidney disease, or unspecified chronic kidney disease; N18.3 Chronic kidney disease, stage 3 (moderate); Z80.6 Family history of leukemia; Z87.442 Personal history of urinary calculi; Z87.891 Personal history of nicotine dependence; Z95.0 Presence of cardiac pacemaker; Z66 Do not resuscitate
CPT/HCPCS: 36415; 70450-TC; 71010-TC; 76705-TC; 76775-TC; 76856-TC; 80048; 80053; 81003; 81015; 82140; 82248; 82436; 82550; 82570; 83010; 83605; 83615; 83735; 84100; 84133; 84156; 84300; 84484; 85025; 85610; 85730; 86850; 86880; 86900; 86901; 87040; 87086; 87186; 93005; 93010; 99283-25